=== PATIENT | female | born 1945 | race Caucasian/White ===

== ENCOUNTER 2016-07-28 16:09 | Inpatient (IN) | payer MEDICARE, OTHER ==
[2016-07-28] MEDS ORDERED: Potassium Chloride 20 MEQ Tab.ER PO ONE (16:22)
--- NOTE | 2016-07-28 16:23 | EDM.PDOC ---
ED HPI GENERAL MEDICAL PROBLEM - General Stated Complaint: LOW POTASSIUM Time Seen by Provider: 07/28/16 16:09 Source of Information: Reports: Patient, Family History Limitations: Reports: Physical Impairment - History of Present Illness INITIAL COMMENTS - FREE TEXT/NARRATIVE: 70 y.o.w.f. with a h/o frequent falls, came to the ED after she was seen at the clinic for her yearly physical, when she was found her potassium was 2.3. Pt is a poor historian, her HPT was given by her daughter. Pt complains of weakness and being always tired. Pt take thyroid meds. Pt denies any other acute medical issue. Onset: Gradual Onset Date: 07/25/16 Onset Time: 17:00 Duration: Day(s): Location: Reports: Generalized Severity: Mild Improves with: Reports: None Worsens with: Reports: None Associated Symptoms: Reports: No Other Symptoms - Related Data Allergies Allergy/AdvReac Type Severity Reaction Status Date / Time amoxicillin Allergy Rash Verified 07/28/16 16:35 latex Allergy Cough Verified 07/28/16 16:36 Home Meds: Home Meds Aspirin 81 mg PO DAILY 07/28/16 [History] Atenolol/Chlorthalidone [Atenolol-Chlorthalidone 100-25] 1 tab PO DAILY [History] Calcium Carb/Vit D3/Minerals [Calcium 600+D Plus Minerals] 1,200 mg PO DAILY [History] Cholecalciferol (Vitamin D3) [Vitamin D3] 1,000 unit PO DAILY 07/28/16 [History] DULoxetine [Cymbalta] 20 mg PO DAILY 07/28/16 [History] Dextran 70/Hypromellose/PF [Artificial Tears Drops] 1 each OP BID 07/28/16 [ History] Docusate Calcium 240 mg PO DAILY 07/28/16 [History] Furosemide [Lasix] 20 mg PO DAILY 07/28/16 [History] Multivitamin [Multi-Vitamin Daily] 1 tab PO DAILY 07/28/16 [History] [place]-3S/DHA/Epa/Fish Oil [[place]-3 Fish Oil 1,200 mg Sfgl] 1,200 mg PO DAILY [History] Tolterodine Tartrate [Detrol LA] 4 mg PO DAILY 07/28/16 [History] cloNIDine [Catapres] 0.1 mg PO DAILY 07/28/16 [History] ED ROS GENERAL - Review of Systems Review Of Systems: Unable To Obtain ED EXAM, GENERAL - Physical Exam Exam: See Below Exam Limited By: Physical Impairment General Appearance: Alert, Mild Distress, Obese (morbid) Eye Exam: Bilateral Eye: Normal Inspection Ears: Normal External Exam Ear Exam: Bilateral Ear: Auricle Normal Nose: Normal Inspection, Normal Mucosa Throat/Mouth: Normal Inspection, Normal Lips Head: Atraumatic, Normocephalic Neck: Tender Midline Respiratory/Chest: No Respiratory Distress, Lungs Clear (poor insp effort) Cardiovascular: Normal Peripheral Pulses, Regular Rate, Rhythm Peripheral Pulses: 2+: Femoral (L), Femoral (R) GI/Abdominal: Normal Bowel Sounds, Soft, Non-Tender (Female) Exam: Deferred Rectal (Female) Exam: Deferred Back Exam: Normal Inspection, Full Range of Motion Extremities: Normal Inspection, Normal Range of Motion Neurological: Alert, Oriented, CN II-XII Intact Psychiatric: Depressed Mood Skin Exam: Warm, Intact, Normal Color Lymphatic: No Adenopathy EKG INTERPRETATION EKG Date: 07/28/16 Time: 18:10 Rhythm: NSR Rate (beats/min): 61 [place]: normal P-wave: present QRS: normal ST-T: normal QT: normal Comparison: NA - no prior EKG Course - Vital Signs Text/Narrative:: 70 y.o.w.f. with a h/o frequent falls, came to the ED after she was seen at the clinic for her yearly physical, when she was found her potassium was 2.3. Pt is a poor historian, her HPT was given by her daughter. Pt complains of weakness and being always tired. Pt take thyroid meds. Has neck painPt denies any other acute medical issue. PE: Morbid obese 70 y.o.w.f in NAD, Neck pain to palpation at midline labs: Potassium 2.3 Mg pending UA pos fro uti Impression: Hypokalemia, Morbid obese, frequent falls, weakness, neck pain, UTI, Tx: KCL 40meq po, 20 meq i v over 2 hours. Reexam: Improved Plan: Admit to med/surge tele for obs Consultation: Dr. Padilla: Admit to Dr. Parks Last Recorded V/S: Last Vital Signs Temp 36.4 C 07/28/16 16:10 Pulse 64 07/28/16 16:10 Resp 18 07/28/16 16:10 BP 133/56 L 07/28/16 16:10 Pulse Ox 98 07/28/16 16:10 - Orders/Labs/Meds Orders: Active Orders 24 hr Category Date Time Status EKG Documentation Completion [RC] ASDIRECTED Care 07/28/16 16:31 Active CXR [Chest 2V] [CR] Stat Exams 07/28/16 17:06 Taken Cervical Spine 1V [CR] Stat Exams 07/28/16 16:44 Stop Req Cervical Spine wo Cont [CT] Stat Exams 07/28/16 16:47 Taken EKG 12 Lead [EK] Routine Ther 07/28/16 16:30 Ordered Medication Orders Enoxaparin Sodium (Lovenox) 40 mg SUBCUT Q12HR SHEMAR Sodium Chloride (Normal Saline) 250 mls @ 100 mls/hr IV ASDIRECTED SHEMAR Last Admin: 07/28/16 18:38 Dose: 100 mls/hr Labs: Laboratory Tests 07/28/16 Range/Units 17:09 Urine Color Yellow (YELLOW) Urine Appearance Clear (CLEAR) Urine pH 7.0 H (5.0-6.5) Ur Specific [place] 1.010 (1.010-1.025) Urine Protein Negative (NEGATIVE) mg/dL Urine Glucose (UA) Normal (NEGATIVE) mg/dL Urine Ketones Negative (NEGATIVE) mg/dL Urine Occult Blood Moderate H (NEGATIVE) Urine Nitrite Negative (NEGATIVE) Urine Bilirubin Negative (NEGATIVE) Urine Urobilinogen Normal (NEGATIVE) mg/dL Ur Leukocyte Esterase Moderate H (NEGATIVE) Urine RBC 5-10 (0) Urine WBC 10-20 H (0) Ur Squamous Epith Cells Few H (NS,R,O) Urine Bacteria Few H (NS) Meds: Medications Generic Name Dose Route Start Last Admin Trade Name Freq PRN Reason Stop Dose Admin Enoxaparin Sodium 40 mg 07/28/16 17:30 Lovenox SUBCUT Q12HR SHEMAR Sodium Chloride 250 mls @ 100 mls/hr 07/28/16 18:30 07/28/16 18:38 Normal Saline IV 100 mls/hr ASDIRECTED SHEMAR Administration Discontinued Medications Generic Name Dose Route Start Last Admin Trade Name Freq PRN Reason Stop Dose Admin Ciprofloxacin 500 mg 07/28/16 17:47 07/28/16 18:39 Ciprofloxacin Hcl PO 07/28/16 17:48 500 mg ONETIME ONE Administration Potassium Chloride 20 meq/ 100 mls @ 50 mls/hr 07/28/16 16:28 07/28/16 18:16 Premix IV 07/28/16 18:27 50 mls/hr ONETIME ONE Administration Potassium Chloride 40 meq 07/28/16 16:22 07/28/16 16:32 Klor-Con M20 PO 07/28/16 16:23 40 meq ONETIME ONE Administration Departure - Departure Time of Disposition: 18:35 Disposition: Refer to Observation Condition: fair Clinical Impression: Hypokalemia - My Orders Last 24 Hours: My Active Orders 07/28/16 16:30 EKG 12 Lead [EK] Routine 07/28/16 16:31 EKG Documentation Completion [RC] ASDIRECTED 07/28/16 16:44 Cervical Spine 1V [CR] Stat 07/28/16 16:47 Cervical Spine wo Cont [CT] Stat 07/28/16 17:06 CXR [Chest 2V] [CR] Stat - Assessment/Plan Last 24 Hours: My Active Orders 07/28/16 16:30 EKG 12 Lead [EK] Routine 07/28/16 16:31 EKG Documentation Completion [RC] ASDIRECTED 07/28/16 16:44 Cervical Spine 1V [CR] Stat 07/28/16 16:47 Cervical Spine wo Cont [CT] Stat 07/28/16 17:06 CXR [Chest 2V] [CR] Stat
[2016-07-28] MEDS ORDERED: Potassium Chloride 20 MEQ in Premix Bag 1 BAG IV ONE (16:28)
[2016-07-28] MEDS ORDERED: Ciprofloxacin 500 MG Tab PO ONE (17:47)
[2016-07-28] MEDS: Sodium Chloride 0.9% 250 ML IV SCH (18:38)
[2016-07-28] MEDS ORDERED: Enoxaparin 40 MG/0.4 ML Syringe SUBCUT SCH (20:00)
[2016-07-28] MEDS ORDERED: Magnesium Hydroxide 400 MG/5 ML Susp 30 ML Cup PO PRN (21:59)
[2016-07-29] MEDS ORDERED: Acetaminophen 325 MG Tab PO PRN (01:54)
[2016-07-29] MEDS ORDERED: SPIRONOLACTONE 25 MG PO SCH (10:00)
[2016-07-29] MEDS ORDERED: CHLORTHALIDONE PO SCH (10:00)
[2016-07-29] MEDS ORDERED: ATENOLOL PO SCH (10:00)
[2016-07-29] MEDS: NS + KCl 20mEq/L 1,000 ML IV SCH ×2 (10:05→23:30)
[2016-07-29] MEDS: CITALOPRAM 40 MG PO SCH (10:11)
[2016-07-29] MEDS: Levothyroxine 88 MCG Tab PO SCH (10:12)
[2016-07-29] MEDS: Ciprofloxacin 250 MG Tab PO SCH ×2 (10:12→20:13)
[2016-07-29] MEDS: DULoxetine 30 MG Cap PO SCH ×2 (10:12→20:10)
[2016-07-29] MEDS: Acetaminophen 500 MG Tab PO PRN ×2 (10:28→16:55)
[2016-07-29] MEDS: Docusate Sodium 100 MG Cap PO PRN (10:30)
[2016-07-29] MEDS: Potassium Chloride 20 MEQ in Premix Bag 1 BAG IV SCH ×2 (10:45→20:20)
--- NOTE | 2016-07-29 18:13 | HP ---
ADMISSION DATE: 07/28/2016 REASON FOR VISIT: Recent fall, weakness, headache, profound hypokalemia. HISTORY OF PRESENT ILLNESS: Bernie Thomas was seen in the morning of 07/30/2016. Had been admitted on 07/28 through the ER. Presented with a recent fall neck injury, profound hypokalemia, generalized weakness. She was found to have a potassium of 2.3 on the day of admission. Admission to hospital is indicated. MEDICATIONS: Present daily medications include: 1. ASA aspirin 81 mg 1 p.o. daily. 2. Betamethasone b.i.d. rash. 3. Calcium plus vitamin D2 daily. 4. Vitamin D3 1000 units one daily. 5. Furosemide 20 mg 1 p.o. daily. 6. Multivitamin one daily. 7. Nutrition omega-3 fish oil one daily. 8. Nutrition atenolol HCTZ 10 to 100-25 one p.o. daily blood pressure. 9. Citalopram 40 mg 1 p.o. daily mood stabilizer. 10.Cymbalta 30 mg 1 p.o. b.i.d. pain control. 11.Docusate sodium 240 one daily stools. 12.Levothyroxine 88 mcg one p.o. daily hypothyroidism. 13.Spironolactone 25 mg 1 p.o. daily edema. 14.Clonidine patch 0.1 mg weekly. 15.Trazodone 100 mg 1 p.o. at bedtime. ALLERGIES: Allergic to amoxicillin with rash, latex with cough. PAST MEDICAL HISTORY: Significant for bilateral total knee arthroplasty, hysterectomy with bilateral salpingo-oophorectomy done through the abdominal wall. She has an ongoing leg ulcer intervention per Dr. Edwards. No other operative procedures, hospitalizations, unusual childhood diseases, major injuries, or fractures. GYNECOLOGICAL HISTORY: Postmenopausal, 1, para 1 female. SOCIAL HISTORY: . . 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 One daughter whom she lives. Nonsmoker. No alcohol consumption. No illicit drug use. REVIEW OF SYSTEMS: History difficult. Feeling weak and feeling tired, intermittent neck pain. Denies respiratory difficulty. No bowel or bladder impairment. Some constipation, mild stress incontinence, left lower leg ulcer. PHYSICAL EXAMINATION: VITAL SIGNS: 36 degrees, pulse 70, blood pressure 129/50, mean blood pressure 76, respirations 18, 97% room air. GENERAL: Elderly, cooperative and conversant, significantly obese. HEENT: Funduscopic benign. Conjunctivae clear. Bright tympanic membranes. Decreased hearing. Clear nasal discharge. Mouth and oropharynx clear. Poor dentition. NECK: Benign. Thyroid small. CHEST: Clear in all lung villatoro. No adventitious sounds. HEART: Regular without ectopy or murmur. ABDOMEN: Soft, benign. No hepatosplenomegaly. Well-healed lower abdominal surgical scar. : Deferred. RECTAL: Deferred. EXTREMITIES: Wrapped ulcer, left lower extremity below the knee. Peripheral pulses are diminished. SKIN: Eczematoid changes. LABORATORY STUDIES: This morning, 07/29, sodium 136, potassium 2.5, chloride 97. GFR 55. Urine suggesting UTI, on Cipro therapy. ASSESSMENT: 1. Weakness due to hypokalemia. 2. Undiagnosed urinary tract infection. 3. Chronic pain syndrome. 4. Left lower extremity, leg ulcer. 5. Status post hysterectomy with bilateral oophorectomy. 6. Status post total knee arthroplasties. 7. Left leg ulcer. PLAN: Medications, care and treatment appropriate. Replacement of potassium, fluids, and hydration. Proceed accordingly. Urinary tract infection will be reviewed. CT cervical spine showed no bony injury. /[id number] NIKKI/TONNY
[2016-07-29] MEDS: traZODone 100 MG Tab PO SCH (20:10)
[2016-07-29] MEDS: Enoxaparin 40 MG/0.4 ML Syringe SUBCUT SCH (20:10)
[2016-07-30] MEDS: Acetaminophen 500 MG Tab PO PRN ×3 (01:19→16:46)
[2016-07-30] MEDS: Levothyroxine 88 MCG Tab PO SCH (06:14)
[2016-07-30] MEDS: CITALOPRAM 40 MG PO SCH (09:36)
[2016-07-30] MEDS: DULoxetine 30 MG Cap PO SCH ×2 (09:36→20:36)
[2016-07-30] MEDS: Ciprofloxacin 250 MG Tab PO SCH ×2 (09:36→20:35)
[2016-07-30] MEDS: Potassium Chloride 20 MEQ in Premix Bag 1 BAG IV SCH ×5 (10:03→21:22)
[2016-07-30] MEDS: Sodium Chloride 0.9% 250 ML IV SCH ×2 (15:00→23:58)
[2016-07-30] MEDS: traZODone 100 MG Tab PO SCH (20:37)
[2016-07-30] MEDS: Enoxaparin 40 MG/0.4 ML Syringe SUBCUT SCH (20:37)
[2016-07-31] MEDS ORDERED: Zolpidem 5 MG Tab PO PRN (00:36)
[2016-07-31] MEDS: Levothyroxine 88 MCG Tab PO SCH (06:59)
--- NOTE | 2016-07-31 08:49 | PN ---
DATE SEEN: 07/30/2016 SUBJECTIVE: Stephanie Thomas is a 70-year-old female, admitted with profound weakness, jitteriness, increasing lethargy, and quite significant hypokalemia, 2.5 on admission, 2.9, and 2.7 today. In today for review. She has had intravenous potassium. Spoke to opportunities and implications. Home situation may be under some conflict. Spoke to opportunities in care, and home living situation along with support services. [employer] Counselor will be consulted. MEDICATIONS: Present medications include oral ciprofloxacin for UTI, Lovenox for DVT prevention, and intravenous potassium. OBJECTIVE: VITAL SIGNS: Temperature 36.6, pulse 67, blood pressure 105/70, 18 respirations, O2 saturations 98%. NECK: Benign, thyroid small. CHEST: Clear in all lung villatoro. No adventitious sounds. HEART: Regular without ectopy or murmur. ABDOMEN: Obese. EXTREMITIES: Edema lower extremity. Ulcerative lesion covered left lower extremity. ASSESSMENT: Hypokalemia with weakness, marked obesity, progress decline in physical well being. PLAN: PT, OT, [employer] Counselor involved complementary care and well being. Proceed accordingly. /[id number] NIKKI/TONNY
[2016-07-31] MEDS: Citalopram 20 MG Tab PO SCH (09:08)
[2016-07-31] MEDS: Ciprofloxacin 250 MG Tab PO SCH ×2 (09:08→20:33)
[2016-07-31] MEDS: DULoxetine 30 MG Cap PO SCH ×2 (09:09→20:34)
[2016-07-31] MEDS: Potassium Chloride 20 MEQ Tab.ER PO SCH ×3 (09:09→20:35)
--- NOTE | 2016-07-31 11:12 | CR ---
INDICATION: Weakness. CHEST: PA and lateral views of the chest 07/28/2016 were compared with 2016 and 10/03/2005, revealing evidence of exogenous obesity as previously. The heart may be slightly increased in size, but remains within normal limits in size. The aorta is tortuous. Findings suggest ASHD of mild degree. There is suggestion of a mass behind the heart which could be on the basis of a fixed hiatal hernia of moderate size. A definite active infiltrate or effusion was not identified. Slight flattening of diaphragm leaves and prominent AP diameter raise question of a mild degree of COPD - correlate clinically. Bridging hyperostotic changes are noted in the mid to lower thoracic spine with evidence of disk disease at several mid thoracic levels. IMPRESSION: 1. No acute process. 2. Probable mild ASHD. 3. Probable mild COPD. 4. 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 5. Suggestion of a mass behind the heart which could be on the basis of a moderate sized fixed hiatal hernia. This could be confirmed by esophagram or CT of the abdomen/chest as necessary clinically. MTDD
[2016-07-31] MEDS: Docusate Sodium 100 MG Cap PO PRN (12:01)
[2016-07-31] MEDS: Acetaminophen 500 MG Tab PO PRN (12:01)
--- NOTE | 2016-07-31 13:53 | PN ---
DATE SEEN: 07/31/2016 SUBJECTIVE: Stepahnie Thomas is a 70-year-old female, admitted with complicated weakness, profound hypokalemia, and weakness. Clinical response has been a bit subdued. Potassium went from 2.5 to 2.9 to 2.7 to 3.0 this morning. This in spite of multiple doses of IV potassium. Care situation is in question. She lives with her daughter and daughter's too semi dependent children. Living situation in under consideration. PT OT involved. Laboratory studies, otherwise have been unremarkable. EXAM: VITAL SIGNS: 36.4; pulse of 62; 102/56 is the blood pressure, mean blood pressure 71; respirations 18; 92% on room air. GENERAL: Sitting in the upright position. Speech was fluent. NECK: Benign. Thyroid small. CHEST: Clear in all lung villatoro. Decreased breath sounds both bases. HEART: Sounds were distant. ABDOMEN: Markedly obese dressing to the left lower leg under supervision by Dr. Edwards. Moderate edema. ASSESSMENT: 1. Hypokalemia with weakness. 2. Living situation in question, independence in question. PLAN: Upcoming review with Automotive Engineering Technician, PT OT, and Intervention. We will switch from IV to oral potassium, discharge plan accordingly. /[id number] NIKKI/TONNY
[2016-07-31] MEDS ORDERED: Carboxymethylcellulose Sodium 1% Ophth Gel 0.4 ML UD Box of 30 EYEBOTH SCH (18:00)
[2016-07-31] MEDS: Betamethasone Dipropionate 0.05% Crm 45 GM Tube TOP SCH (20:34)
[2016-07-31] MEDS: traZODone 100 MG Tab PO SCH (20:35)
[2016-07-31] MEDS: Enoxaparin 40 MG/0.4 ML Syringe SUBCUT SCH (20:35)
[2016-07-31] MEDS: Carboxymethylcellulose Sodium 0.5% Ophth Soln 15 ML Bottle ONE ×2 (20:36→22:43)
[2016-07-31] MEDS ORDERED: Betamethasone Dipropionate 0.05% Crm 45 GM Tube TOP SCH (21:00)
[2016-08-01] MEDS: Levothyroxine 88 MCG Tab PO SCH (05:47)
--- NOTE | 2016-08-01 08:36 | PN ---
DATE SEEN: 07/31/2016 SUBJECTIVE: This patient is being seen for a dressing change. She was scheduled to see me today. She is being followed for venous stasis disease in the medial aspect of her left ankle. She had developed a small punctate ulceration and was scheduled to see me today in clinic; however, due to her admission for hypokalemia I was asked to see the patient here in the hospital. OBJECTIVE: The Unna boot which had been applied last week was removed. The lesion itself demonstrates a small breakdown of the skin approximately 1 cm in diameter consisting of several punctate lesions. She also has some venous stasis changes to her lower extremity. Aquacel Ag was reapplied as was the Unna Boot, Kerlix, and Casimiro wrap. I have instructed the patient to follow up next week after discharge for dressing change. /[id number] /ANGELICAL
[2016-08-01] MEDS: Acetaminophen 500 MG Tab PO PRN ×2 (08:39→22:51)
[2016-08-01] MEDS: Citalopram 20 MG Tab PO SCH (08:40)
[2016-08-01] MEDS: Potassium Chloride 20 MEQ Tab.ER PO SCH ×3 (08:40→20:57)
[2016-08-01] MEDS: Ciprofloxacin 250 MG Tab PO SCH ×2 (08:40→20:56)
[2016-08-01] MEDS: Carboxymethylcellulose Sodium 0.5% Ophth Soln 15 ML Bottle EYEBOTH SCH ×2 (08:44→20:57)
[2016-08-01] MEDS: Betamethasone Dipropionate 0.05% Crm 45 GM Tube TOP SCH ×2 (08:44→20:56)
[2016-08-01] MEDS: DULoxetine 30 MG Cap PO SCH ×2 (08:44→20:56)
[2016-08-01] MEDS ORDERED: cloNIDine 0.1 MG/Day Transdermal Patch TRDERM SCH (09:00)
--- NOTE | 2016-08-01 11:01 | PN ---
DATE SEEN: 08/01/2016 SUBJECTIVE: Stephanie Thomas is a 70-year-old female, admitted with profound weakness and hypokalemia. Response has been satisfactory. Last two potassium is 3.6 and 3.4. Ambulatory skills are limited, getting up from the bed, getting up from the chair quite problematic. Ambulatory skills are limited. Focusing on improvement is under review. Swing bed status upcoming and planned. OBJECTIVE: VITAL SIGNS: 36.1, 121/57, 70 is the mean blood pressure, 20 is the respiration, 97% on room air. GENERAL: Appears comfortable. Speech was fluent. NECK: Benign. Thyroid small. CHEST: Clear in all lung villatoro. HEART: Regular. No ectopy or murmur. ABDOMEN: Benign. Significantly obese. EXTREMITIES: Moderate edema lower extremities, ulcer left ankle, under review and observation. ASSESSMENT: Complicated fatigue, profound weakness, hypokalemia. PLAN: Appears to be well, we will continue oral. Potassium, complementary care, and well being, medications as appropriate. Swing bed planned, upcoming tomorrow. /[id number] /TONNY
[2016-08-01] MEDS: traZODone 100 MG Tab PO SCH (20:57)
[2016-08-01] MEDS: Enoxaparin 40 MG/0.4 ML Syringe SUBCUT SCH (20:57)
[2016-08-02] MEDS: Levothyroxine 88 MCG Tab PO SCH (06:21)
[2016-08-02] MEDS: DULoxetine 30 MG Cap PO SCH (09:21)
[2016-08-02] MEDS: Potassium Chloride 20 MEQ Tab.ER PO SCH (09:21)
[2016-08-02] MEDS: Citalopram 20 MG Tab PO SCH (09:21)
[2016-08-02] MEDS: Betamethasone Dipropionate 0.05% Crm 45 GM Tube TOP SCH (09:22)
[2016-08-02] MEDS: Ciprofloxacin 250 MG Tab PO SCH (09:22)
[2016-08-02 09:40] VITALS: BP 121/78
--- NOTE | 2016-08-03 02:24 | DISCH ---
DISCHARGE DATE: 08/02/2016 HOSPITAL COURSE: Stephanie Thomas is a 70-year-old female admitted with complicated fatigue, profound hypokalemia, and profound lethargy. Metabolically, things improved. Potassium levels returned to normal. There was an increasing issue of self-care issues, ability to sit, transfer, and move. PT, OT were actively involved. At the time of discharge, need for ongoing care, i.e., swing bed timely and appropriate felt to be indicated. DISCHARGE MEDICATIONS: Please see med recon list. SURGICAL PROCEDURES: None. CONSULTATIONS: None. /[id number] NIKKI/TONNY
== END 2016-08-02 10:14 | disposition swing bed (61) | DRG 641 ==
LOC: FB.ED 16:09 → UNDOADMOB 17:25 → FB.MS 17:25 → OBSVTOIN 07-30 09:55 → FB.MS 07-30 09:55
PROVIDERS: ADMIT Family Medicine; ATTEND Family Medicine
DX: E87.6 Hypokalemia (principal); L97.829 Non-pressure chronic ulcer of other part of left lower leg with unspecified severity; N39.0 Urinary tract infection, site not specified; Z68.42 Body mass index [BMI] 45.0-49.9, adult; E66.01 Morbid (severe) obesity due to excess calories; R53.1 Weakness; Z91.81 History of falling; G89.4 Chronic pain syndrome; S19.9XXA Unspecified injury of neck, initial encounter; R53.83 Other fatigue; W19.XXXA Unspecified fall, initial encounter; Y92.009 Unspecified place in unspecified non-institutional (private) residence as the place of occurrence of the external cause; R82.79 Other abnormal findings on microbiological examination of urine; I87.8 Other specified disorders of veins; Z96.653 Presence of artificial knee joint, bilateral; Z79.82 Long term (current) use of aspirin; Z88.1 Allergy status to other antibiotic agents; Z91.040 Latex allergy status
CPT/HCPCS: 36415 ×3; 71020; 72125; 80048; 81001; 83735; 84132 ×2; 84443; 85610; 87086; 87088; 93005; 99285; A9270 ×20; J1650 ×2; J3480 ×5; J7050; 36410; 87186; 97110-GO; 97116-GP; 97161-GP; 97165-GO; 97530-GO-KX; 97530-GP; 99225

== ENCOUNTER 2016-08-02 10:16 | Inpatient (IN) | payer MEDICARE, OTHER ==
[2016-08-02] MEDS ORDERED: Magnesium Hydroxide 400 MG/5 ML Susp 30 ML Cup PO PRN (10:25)
[2016-08-02] MEDS: Potassium Chloride 20 MEQ Tab.ER PO SCH ×2 (14:00→20:50)
[2016-08-02] MEDS: Ciprofloxacin 250 MG Tab PO SCH (20:49)
[2016-08-02] MEDS: Betamethasone Dipropionate 0.05% Crm 45 GM Tube TOP SCH (20:50)
[2016-08-02] MEDS: DULoxetine 30 MG Cap PO SCH (20:50)
[2016-08-02] MEDS: traZODone 100 MG Tab PO SCH (20:51)
[2016-08-02] MEDS: Enoxaparin 40 MG/0.4 ML Syringe SUBCUT SCH (20:51)
[2016-08-02] MEDS: Carboxymethylcellulose Sodium 0.5% Ophth Soln 15 ML Bottle EYEBOTH SCH (20:51)
[2016-08-02] MEDS: Acetaminophen 500 MG Tab PO PRN (21:48)
[2016-08-02] MEDS: Zolpidem 5 MG Tab PO PRN (22:43)
[2016-08-03] MEDS: Levothyroxine 88 MCG Tab PO SCH (05:37)
[2016-08-03] MEDS ORDERED: ATENOLOL PO SCH (09:00)
[2016-08-03] MEDS ORDERED: CHLORTHALIDONE PO SCH (09:00)
[2016-08-03] MEDS: Aspirin 81 MG Tab.Chew PO SCH (09:11)
[2016-08-03] MEDS: Chlorthalidone 25 MG Tab PO SCH (09:12)
[2016-08-03] MEDS: DULoxetine 30 MG Cap PO SCH ×2 (09:12→21:03)
[2016-08-03] MEDS: Citalopram 20 MG Tab PO SCH (09:12)
[2016-08-03] MEDS: Ciprofloxacin 250 MG Tab PO SCH ×2 (09:12→21:03)
[2016-08-03] MEDS: Potassium Chloride 20 MEQ Tab.ER PO SCH ×3 (09:13→21:06)
[2016-08-03] MEDS: Betamethasone Dipropionate 0.05% Crm 45 GM Tube TOP SCH ×2 (09:13→21:03)
--- NOTE | 2016-08-03 10:45 | PN ---
DATE SEEN: 08/03/2016 Stephanie Thomas is a 70-year-old female, admitted with weakness, hyponatremia, and deconditioning. Hospital course was satisfactory with improvement of her hypokalemia. It is all under supervision. Now in swing bed. Ambulatory skills particularly going from sitting out of the chair and from bed to ambulance have been a primary issue, PT and OT actively involved. We will recheck a potassium today, complementary care and well being. She is on adequate potassium chloride 20 mEq t.i.d., she has not been symptomatic, electrocardiographic issues have been stable. Comfortable in that regard. /[id number] NIKKI/TONNY
[2016-08-03] MEDS: Enoxaparin 40 MG/0.4 ML Syringe SUBCUT SCH (21:06)
[2016-08-03] MEDS: Zolpidem 5 MG Tab PO PRN (21:07)
[2016-08-03] MEDS: Acetaminophen 500 MG Tab PO PRN (21:07)
[2016-08-03] MEDS: traZODone 100 MG Tab PO SCH (21:07)
[2016-08-03] MEDS: Carboxymethylcellulose Sodium 0.5% Ophth Soln 15 ML Bottle EYEBOTH SCH (21:08)
[2016-08-04] MEDS: Levothyroxine 88 MCG Tab PO SCH (05:53)
[2016-08-04] MEDS: Citalopram 20 MG Tab PO SCH (08:17)
[2016-08-04] MEDS: DULoxetine 30 MG Cap PO SCH ×2 (08:17→20:18)
[2016-08-04] MEDS: Betamethasone Dipropionate 0.05% Crm 45 GM Tube TOP SCH ×2 (08:18→20:22)
[2016-08-04] MEDS: Chlorthalidone 25 MG Tab PO SCH (08:18)
[2016-08-04] MEDS: Aspirin 81 MG Tab.Chew PO SCH (08:18)
[2016-08-04] MEDS: Potassium Chloride 20 MEQ Tab.ER PO SCH ×3 (08:18→20:19)
[2016-08-04] MEDS: Ciprofloxacin 250 MG Tab PO SCH ×2 (08:18→20:21)
[2016-08-04] MEDS: Acetaminophen 500 MG Tab PO PRN (20:18)
[2016-08-04] MEDS: traZODone 100 MG Tab PO SCH (20:19)
[2016-08-04] MEDS: Enoxaparin 40 MG/0.4 ML Syringe SUBCUT SCH (20:19)
[2016-08-05] MEDS: Zolpidem 5 MG Tab PO PRN ×2 (02:00→20:10)
[2016-08-05] MEDS: Levothyroxine 88 MCG Tab PO SCH (05:29)
[2016-08-05] MEDS: Aspirin 81 MG Tab.Chew PO SCH (08:19)
[2016-08-05] MEDS: Citalopram 20 MG Tab PO SCH (08:20)
[2016-08-05] MEDS: Chlorthalidone 25 MG Tab PO SCH (08:25)
[2016-08-05] MEDS: DULoxetine 30 MG Cap PO SCH ×2 (08:26→20:10)
[2016-08-05] MEDS: Betamethasone Dipropionate 0.05% Crm 45 GM Tube TOP SCH ×2 (08:28→20:11)
[2016-08-05] MEDS: Potassium Chloride 20 MEQ Tab.ER PO SCH ×3 (08:32→20:09)
[2016-08-05] MEDS: Acetaminophen 500 MG Tab PO PRN ×3 (11:02→23:55)
[2016-08-05] MEDS: Carboxymethylcellulose Sodium 0.5% Ophth Soln 15 ML Bottle EYEBOTH SCH (13:25)
[2016-08-05] MEDS: Enoxaparin 40 MG/0.4 ML Syringe SUBCUT SCH (20:09)
[2016-08-05] MEDS: traZODone 100 MG Tab PO SCH (20:09)
[2016-08-06] MEDS: Levothyroxine 88 MCG Tab PO SCH (05:15)
[2016-08-06] MEDS: Aspirin 81 MG Tab.Chew PO SCH (08:34)
[2016-08-06] MEDS: Citalopram 20 MG Tab PO SCH (08:34)
[2016-08-06] MEDS: Chlorthalidone 25 MG Tab PO SCH (08:35)
[2016-08-06] MEDS: DULoxetine 30 MG Cap PO SCH ×2 (08:36→20:10)
[2016-08-06] MEDS: Betamethasone Dipropionate 0.05% Crm 45 GM Tube TOP SCH ×2 (08:36→20:10)
[2016-08-06] MEDS: Potassium Chloride 20 MEQ Tab.ER PO SCH ×3 (08:37→20:11)
--- NOTE | 2016-08-06 09:32 | PCM.PN ---
- General Info Date of Service: 08/06/16 Admission Dx/Problem (Free Text): Patient states she's doing well. She states she still feels weak but is getting stronger. She denies chest pain, shortness of breath, or leg swelling. - Patient Data Vitals - most recent: Last Vital Signs Temp 97.7 F 08/06/16 08:00 Pulse 68 08/06/16 08:38 Resp 16 08/06/16 08:00 BP 120/71 08/06/16 08:38 Pulse Ox 96 08/06/16 08:00 Weight - most recent: 308 lb 11.2 oz Med Orders - Current: Current Medications Acetaminophen (Tylenol Extra Strength) 1,000 mg PO Q6H PRN PRN Reason: Pain Last Admin: 08/05/16 23:55 Dose: 1,000 mg Artificial Tears (Refresh Tears 0.5%) 0 ml EYEBOTH ASDIRECTED [facility] Last Admin: 08/05/16 13:25 Dose: 2 drop Aspirin (Aspirin) 81 mg PO DAILY [facility] Last Admin: 08/06/16 08:34 Dose: 81 mg Atenolol (Tenormin) 100 mg PO DAILY [facility] Last Admin: 08/06/16 08:38 Dose: 100 mg Betamethasone Dipropionate (Diprosone 0.05% Crm) 0 gm TOP BID [facility] Last Admin: 08/06/16 08:36 Dose: 1 applic Chlorthalidone (Chlorthalidone) 25 mg PO DAILY [facility] Last Admin: 08/06/16 08:35 Dose: 25 mg Citalopram Hydrobromide (Celexa) 20 mg PO DAILY [facility] Last Admin: 08/06/16 08:34 Dose: 20 mg Clonidine HCl (Catapres-Tts 1) 0.1 mg TOP Tu@0900 [facility] Docusate Sodium (Colace) 100 mg PO DAILY PRN PRN Reason: CONSTIPATION Duloxetine HCl (Cymbalta) 30 mg PO BID [facility] Last Admin: 08/06/16 08:36 Dose: 30 mg Enoxaparin Sodium (Lovenox) 40 mg SUBCUT Q24H [facility] Last Admin: 08/05/16 20:09 Dose: 40 mg Levothyroxine Sodium (Synthroid) 88 mcg PO DAILY@0600 [facility] Last Admin: 08/06/16 05:15 Dose: 88 mcg Magnesium Hydroxide (Milk Of Magnesia) 30 ml PO DAILY PRN PRN Reason: Constipation Potassium Chloride (Klor-Con M20) 20 meq PO TID [facility] Last Admin: 08/06/16 08:37 Dose: 20 meq Trazodone HCl (Trazodone) 100 mg PO BEDTIME [facility] Last Admin: 08/05/16 20:09 Dose: 100 mg Zolpidem Tartrate (Ambien) 5 mg PO BEDTIME PRN PRN Reason: Insomnia Last Admin: 08/05/16 20:10 Dose: 5 mg Discontinued Medications Atenolol/Chlorthalidone (Tenoretic 100) 1 tab PO DAILY [facility] Ciprofloxacin (Ciprofloxacin Hcl) 250 mg PO BID [facility] Stop: 08/04/16 21:00 Last Admin: 08/04/16 20:21 Dose: 250 mg - Exam General: alert, oriented, cooperative Lungs: Clear to auscultation, Normal respiratory effort Cardiovascular: Regular Rate, Regular Rhythm, No Murmurs Extremities: no edema - Problem List & Annotations (1) Weakness SNOMED Code(s): 60767085 Code(s): R53.1 - WEAKNESS Status: Acute Current Visit: Yes (2) Hypokalemia SNOMED Code(s): 21461233 Code(s): E87.6 - HYPOKALEMIA Status: Acute Current Visit: No - Problem List Review Problem List Initiated/Reviewed/Updated: Yes - Plan Plan:: 1. Continue current care.
[2016-08-06] MEDS: Acetaminophen 500 MG Tab PO PRN (09:35)
[2016-08-06] MEDS: Enoxaparin 40 MG/0.4 ML Syringe SUBCUT SCH (20:11)
[2016-08-06] MEDS: traZODone 100 MG Tab PO SCH (20:12)
[2016-08-07] MEDS: Acetaminophen 500 MG Tab PO PRN ×2 (04:49→20:44)
[2016-08-07] MEDS: Levothyroxine 88 MCG Tab PO SCH (05:21)
[2016-08-07] MEDS: Aspirin 81 MG Tab.Chew PO SCH (08:49)
[2016-08-07] MEDS: Citalopram 20 MG Tab PO SCH (08:49)
[2016-08-07] MEDS: DULoxetine 30 MG Cap PO SCH ×2 (08:50→20:39)
[2016-08-07] MEDS: Chlorthalidone 25 MG Tab PO SCH (08:50)
[2016-08-07] MEDS: Betamethasone Dipropionate 0.05% Crm 45 GM Tube TOP SCH ×2 (08:50→20:39)
[2016-08-07] MEDS: Potassium Chloride 20 MEQ Tab.ER PO SCH ×3 (08:51→20:40)
[2016-08-07] MEDS: Enoxaparin 40 MG/0.4 ML Syringe SUBCUT SCH (20:40)
[2016-08-07] MEDS: traZODone 100 MG Tab PO SCH (20:41)
[2016-08-08] MEDS: Levothyroxine 88 MCG Tab PO SCH (05:25)
[2016-08-08] MEDS ORDERED: cloNIDine 0.1 MG/Day Transdermal Patch TOP SCH (09:00)
[2016-08-08] MEDS: Chlorthalidone 25 MG Tab PO SCH (09:07)
[2016-08-08] MEDS: DULoxetine 30 MG Cap PO SCH ×2 (09:07→21:12)
[2016-08-08] MEDS: Citalopram 20 MG Tab PO SCH (09:07)
[2016-08-08] MEDS: Aspirin 81 MG Tab.Chew PO SCH (09:07)
[2016-08-08] MEDS: Potassium Chloride 20 MEQ Tab.ER PO SCH ×3 (09:08→21:13)
[2016-08-08] MEDS: Betamethasone Dipropionate 0.05% Crm 45 GM Tube TOP SCH ×2 (09:08→21:12)
[2016-08-08] MEDS: Carboxymethylcellulose Sodium 0.5% Ophth Soln 15 ML Bottle EYEBOTH SCH (09:09)
[2016-08-08] MEDS: Acetaminophen 500 MG Tab PO PRN ×2 (12:18→21:15)
[2016-08-08] MEDS: Enoxaparin 40 MG/0.4 ML Syringe SUBCUT SCH (21:13)
[2016-08-08] MEDS: Docusate Sodium 100 MG Cap PO PRN (21:14)
[2016-08-08] MEDS: traZODone 100 MG Tab PO SCH (21:14)
[2016-08-09] MEDS: Levothyroxine 88 MCG Tab PO SCH (05:20)
[2016-08-09] MEDS: Betamethasone Dipropionate 0.05% Crm 45 GM Tube TOP SCH ×3 (09:00→20:45)
[2016-08-09] MEDS: Chlorthalidone 25 MG Tab PO SCH (09:06)
[2016-08-09] MEDS: Potassium Chloride 20 MEQ Tab.ER PO SCH ×3 (09:06→20:44)
[2016-08-09] MEDS: Citalopram 20 MG Tab PO SCH (09:07)
[2016-08-09] MEDS: DULoxetine 30 MG Cap PO SCH ×2 (09:07→20:44)
[2016-08-09] MEDS: Aspirin 81 MG Tab.Chew PO SCH (09:07)
[2016-08-09] MEDS: Acetaminophen 500 MG Tab PO PRN (11:55)
[2016-08-09] MEDS: traZODone 100 MG Tab PO SCH (20:45)
[2016-08-09] MEDS: Enoxaparin 40 MG/0.4 ML Syringe SUBCUT SCH (20:45)
[2016-08-10] MEDS: Levothyroxine 88 MCG Tab PO SCH (06:09)
[2016-08-10] MEDS: Chlorthalidone 25 MG Tab PO SCH (08:13)
[2016-08-10] MEDS: Aspirin 81 MG Tab.Chew PO SCH (08:13)
[2016-08-10] MEDS: Citalopram 20 MG Tab PO SCH (08:13)
[2016-08-10] MEDS: DULoxetine 30 MG Cap PO SCH ×2 (08:14→21:02)
[2016-08-10] MEDS: Docusate Sodium 100 MG Cap PO PRN (08:15)
[2016-08-10] MEDS: Potassium Chloride 20 MEQ Tab.ER PO SCH ×3 (08:15→21:03)
[2016-08-10] MEDS: Betamethasone Dipropionate 0.05% Crm 45 GM Tube TOP SCH ×2 (08:15→20:40)
[2016-08-10] MEDS: Acetaminophen 500 MG Tab PO PRN ×2 (08:15→21:04)
[2016-08-10] MEDS: Enoxaparin 40 MG/0.4 ML Syringe SUBCUT SCH (21:03)
[2016-08-10] MEDS: traZODone 100 MG Tab PO SCH (21:03)
[2016-08-11] MEDS: Levothyroxine 88 MCG Tab PO SCH (05:42)
[2016-08-11] MEDS: DULoxetine 30 MG Cap PO SCH (08:36)
[2016-08-11] MEDS: Potassium Chloride 20 MEQ Tab.ER PO SCH (08:36)
[2016-08-11] MEDS: Aspirin 81 MG Tab.Chew PO SCH (08:36)
[2016-08-11] MEDS: Citalopram 20 MG Tab PO SCH (08:37)
[2016-08-11] MEDS: Betamethasone Dipropionate 0.05% Crm 45 GM Tube TOP SCH (08:37)
[2016-08-11] MEDS: Chlorthalidone 25 MG Tab PO SCH (08:37)
[2016-08-11 08:38] VITALS: BP 136/68
--- NOTE | 2016-08-12 02:13 | DISCH ---
DISCHARGE DATE: 08/11/2016 REASON FOR ADMISSION: 1. Hypokalemia. 2. Generalized weakness. 3. Physical deconditioning. DISCHARGE DIAGNOSES: Hypokalemia, generalized weakness, depression, hypertension. BRIEF HISTORY AND HOSPITAL COURSE: This is a 70-year-old female, who was admitted initially on the to the hospital acute care side for frequent falls, low potassium; was admitted for IV fluids, potassium replacement, and PT. She improved and was discharged to swing bed on the , has been there attending physical therapy, strengthening, and she is ready to go home. Her potassium has been replaced and last potassium checked was 3.5. DISCHARGE MEDICATIONS: She was discharged on the following medications. 1. Acetaminophen 1000 mg p.r.n. every 6 hours. 2. Aspirin 81 mg a day. 3. Atenolol 100 mg a day. 4. Betamethasone cream b.i.d. topically. 5. Carboxymethylcellulose to both eyes. 6. Chlorthalidone 25 mg a day. 7. Celexa 10 mg a day. 8. Cymbalta 30 mg b.i.d. 9. Docusate 100 mg daily p.r.n. 10.Levothyroxine 88 mcg daily. 11.Magnesium hydroxide 30 mL p.o. daily p.r.n. 12.Potassium chloride 20 mEq t.i.d. 13.Ambien 5 mg at night p.r.n. 14.Clonidine 0.1 mg at nine every morning. 15.Trazodone 100 mg at bedtime. FOLLOWUP: She will see PCP in a week. She will also go home with home health because she still needs supervision with medications and to continue physical therapy as necessary. Please note that I spent 45 minutes in the discharge of this patient. /[id number] ERIC/TONNY
== END 2016-08-11 10:15 | disposition home health service (06) | DRG 948 ==
LOC: FB.MS 10:16
PROVIDERS: ADMIT Family Medicine; ATTEND Family Medicine
DX: R53.1 Weakness (principal); E87.6 Hypokalemia; F32.9 Major depressive disorder, single episode, unspecified; Z79.82 Long term (current) use of aspirin; Z88.1 Allergy status to other antibiotic agents; Z91.040 Latex allergy status; Z66 Do not resuscitate; Z96.653 Presence of artificial knee joint, bilateral
CPT/HCPCS: 36415; 84132; 97110-GO; 97110-GP; 97116-GP; 97530-GO; 97530-GO-KX; 97530-GP; 97535-GO; A9270-GY; J1650

== ENCOUNTER 2016-09-21 16:28 | Inpatient (IN) | payer MEDICARE, OTHER ==
[2016-09-21] MEDS ORDERED: Magnesium Citrate Solution 296 ML Bottle PO ONE (16:51)
--- NOTE | 2016-09-21 16:53 | EDM.PDOC ---
ED HPI GENERAL MEDICAL PROBLEM - General Chief Complaint: General Stated Complaint: WEAKNESS Time Seen by Provider: 09/21/16 16:40 Source of Information: Reports: Patient, EMS, Old Records History Limitations: Reports: No Limitations - History of Present Illness INITIAL COMMENTS - FREE TEXT/NARRATIVE: 70 yo female is brought in for weakness. Was recently hospitalized for hypokalemia. Has chronic weakness that is getting worse. Has used a walker to get around for about 2 yrs now. Lives with her daughter. Before yesterday was able to walk only a short distance within the home, now cannot even do that. No hx of CVA. No recent illness other than the hypokalemia and some constipation. Onset: Gradual Duration: Chronic, Getting Worse Location: Reports: Generalized (Worse in LE's) Quality: Reports: Other (no pain) Severity: Severe Improves with: Reports: None Worsens with: Reports: Other (? time) Context: Reports: Other (Progressive over time.) Associated Symptoms: Reports: Weakness. Denies: Confusion, Chest Pain, Cough, Diaphoresis, Fever/Chills, Loss of Appetite, Malaise, Nausea/Vomiting, Rash, Seizure, Shortness of Breath Treatments FIRE WATCHER: Reports: Other (see below) (none) - Related Data Allergies Allergy/AdvReac Type Severity Reaction Status Date / Time amoxicillin Allergy Rash Verified 08/02/16 13:23 latex Allergy Cough Verified 08/02/16 13:23 Home Meds: Home Meds Aspirin 81 mg PO DAILY 07/28/16 [History] Atenolol/Chlorthalidone [Atenolol-Chlorthalidone 100-25] 1 tab PO DAILY [History] Calcium Carb/Vit D3/Minerals [Calcium 600+D Plus Minerals] 1,200 mg PO DAILY [History] Cholecalciferol (Vitamin D3) [Vitamin D3] 1,000 unit PO DAILY 07/28/16 [History] Dextran 70/Hypromellose/PF [Artificial Tears Drops] 1 each EYEBOTH BID PRN 07/28 [History] Levothyroxine [Synthroid] 88 mcg PO ACBREAKFAST 07/28/16 [History] Multivitamin [Multi-Vitamin Daily] 1 tab PO DAILY 07/28/16 [History] [place]-3S/DHA/Epa/Fish Oil [[place]-3 Fish Oil 1,200 mg Sfgl] 1,200 mg PO DAILY [History] traZODone HCl [Trazodone HCl] 100 mg PO BEDTIME 07/28/16 [History] Agilease 1 tab PO BID 07/29/16 [History] Sulfurzyme 2 tab PO BID 07/29/16 [History] Acetaminophen [Tylenol Extra Strength] 1,000 mg PO Q6H PRN #0 tablet 08/02/16 [ Rx] Docusate Sodium [Colace] 100 mg PO DAILY PRN 08/02/16 [History] Betamethasone Dipropionate [Diprosone 0.05% Crm] 1 applicful TOP BID PRN [History] Carboxymethylcellulose Sodium [Refresh Tears 0.5%] 1 drop EYEBOTH ASDIRECTED PRN 09/21/16 [History] Potassium Chloride [Klor-Con M20] 20 meq PO BID 09/21/16 [History] Past Medical History - Past Health History Medical/Surgical History: Denies Medical/Surgical History Other HEENT History: Pt wears glasses. Cardiovascular History: Reports: Hypertension Gastrointestinal History: Reports: GERD Genitourinary History: Reports: Urinary Incontinence, Other (See Below) Other Genitourinary History: overactive bladder PSYCH SPECIALIST History: Reports: , Other (See Below) Other OB/BYN History: Musculoskeletal History: Reports: Back Pain, Chronic, Osteoarthritis Psychiatric History: Reports: Depression Endocrine/Metabolic History: Reports: Hypothyroidism, Obesity/BMI 30+ Dermatologic History: Reports: Eczema - Past Surgical History Female Surgical History: Reports: Hysterectomy Social & Family History - Tobacco Use Smoking Status *Q: Never Smoker Second Hand Smoke Exposure: No - Caffeine Use Caffeine Use: Reports: None - Recreational Drug Use Recreational Drug Use: No ED ROS GENERAL - Review of Systems Review Of Systems: See Below Constitutional: Reports: Weakness. Denies: Fever, Chills, Malaise, Decreased Appetite, Weight Loss, Weight Gain HEENT: Reports: No Symptoms Respiratory: Reports: No Symptoms Cardiovascular: Reports: No Symptoms Endocrine: Reports: No Symptoms GI/Abdominal: Reports: Constipation. Denies: Abdominal Pain, Anorexia, Black Stool, Bloody Stool, Diarrhea, Distension, Flatus, Hematemesis, Hematochezia, Melena, Nausea, Stool Incontinence, Vomiting : Reports: No Symptoms Musculoskeletal: Reports: No Symptoms Skin: Reports: No Symptoms Neurological: Reports: Weakness (generalized) Psychiatric: Reports: No Symptoms ED EXAM, NEURO - Physical Exam Exam: See Below Exam Limited By: No Limitations General Appearance: Alert, WD/WN, No Apparent Distress, Obese Eye Exam: Bilateral Eye: Conjunctival Injection, Normal Inspection, PERRL Ears: Normal External Exam, Normal Canal, Hearing Grossly Normal Nose: Normal Inspection, Normal Mucosa, No Blood Throat/Mouth: Normal Inspection, Normal Lips, Normal Teeth, Normal Oropharynx, Normal Voice, No Airway Compromise Head Exam: Atraumatic, Normocephalic Neck: Normal Inspection, Supple, Non-Tender Respiratory/Chest: No Respiratory Distress, Lungs Clear, Normal Breath Sounds, No Accessory Muscle Use Cardiovascular: Regular Rate, Rhythm, No Edema GI/Abdominal: Normal Bowel Sounds, Soft, Non-Tender, No Distention Neurological: Alert, Normal Mood/Affect, CN II-XII Intact, No Motor/Sensory Deficits, Oriented x 3, Other (Diffuse LE weakness, bilateral) Back Exam: Normal Inspection. No: CVA Tenderness (R), CVA Tenderness (L) Extremities: Normal Inspection, Normal Range of Motion, Pedal Edema. No: No Pedal Edema, Increased Warmth, Redness Psychiatric: Normal Affect, Normal Mood Skin Exam: Warm, Dry, Intact, Normal Color, No Rash Course - Vital Signs Text/Narrative:: LR 1000 ml IV Last Recorded V/S: Last Vital Signs Temp 36.4 C 09/21/16 16:30 Pulse 67 09/21/16 16:30 Resp 18 09/21/16 16:30 BP 141/66 H 09/21/16 16:30 Pulse Ox 100 09/21/16 16:30 - Orders/Labs/Meds Orders: Active Orders 24 hr Category Date Time Status MAGNESIUM [CHEM] Stat Lab 09/21/16 17:39 Ordered Lactated Ringers [Ringers, Lactated] 1,000 ml Med 09/21/16 17:32 Active IV BOLUS Medication Orders Lactated Ringer's (Ringers, Lactated) 1,000 mls @ 1,000 mls/hr IV BOLUS ONE Stop: 09/21/16 18:31 Labs: Laboratory Tests 09/21/16 09/21/16 09/21/16 Range/Units 16:55 16:55 16:55 WBC 6.8 (4.5-12.0) X10-3/uL RBC 3.82 (3.23-5.20) x10(6)uL Hgb 12.1 (11.5-15.5) g/dL Hct 36.2 (30.0-51.3) % MCV 94.8 (80-96) fL MCH 31.8 (27.7-33.6) pg MCHC 33.5 (32.2-35.4) g/dL RDW 12.9 (11.5-15.5) % Plt Count 182 (125-369) X10(3)uL Sodium 140 (135-145) mmol/L Potassium 3.9 (3.5-5.3) mmol/L Chloride 107 (100-110) mmol/L Carbon Dioxide 26 (23-29) mmol/L BUN 25 H D (8-23) mg/dL Creatinine 0.9 (0.6-1.3) mg/dL Est Cr Clr Drug Dosing TNP Estimated GFR (MDRD) > 60 (>60) BUN/Creatinine Ratio 27.8 H (9-20) Glucose 107 (80-116) mg/dL Calcium 9.6 (8.6-10.2) mg/dL Troponin I < 0.01 L (0.02-0.06) NG/ML Urine Color (YELLOW) Urine Appearance (CLEAR) Urine pH (5.0-6.5) Ur Specific [place] (1.010-1.025) Urine Protein (NEGATIVE) mg/dL Urine Glucose (UA) (NEGATIVE) mg/dL Urine Ketones (NEGATIVE) mg/dL Urine Occult Blood (NEGATIVE) Urine Nitrite (NEGATIVE) Urine Bilirubin (NEGATIVE) Urine Urobilinogen (NEGATIVE) mg/dL Ur Leukocyte Esterase (NEGATIVE) Urine RBC (0) Urine WBC (0) Ur Squamous Epith Cells (NS,R,O) Urine Bacteria (NS) 09/21/16 Range/Units 17:10 WBC (4.5-12.0) X10-3/uL RBC (3.23-5.20) x10(6)uL Hgb (11.5-15.5) g/dL Hct (30.0-51.3) % MCV (80-96) fL MCH (27.7-33.6) pg MCHC (32.2-35.4) g/dL RDW (11.5-15.5) % Plt Count (125-369) X10(3)uL Sodium (135-145) mmol/L Potassium (3.5-5.3) mmol/L Chloride (100-110) mmol/L Carbon Dioxide (23-29) mmol/L BUN (8-23) mg/dL Creatinine (0.6-1.3) mg/dL Est Cr Clr Drug Dosing Estimated GFR (MDRD) (>60) BUN/Creatinine Ratio (9-20) Glucose (80-116) mg/dL Calcium (8.6-10.2) mg/dL Troponin I (0.02-0.06) NG/ML Urine Color Yellow (YELLOW) Urine Appearance Clear (CLEAR) Urine pH 6.0 (5.0-6.5) Ur Specific [place] 1.015 (1.010-1.025) Urine Protein Negative (NEGATIVE) mg/dL Urine Glucose (UA) Normal (NEGATIVE) mg/dL Urine Ketones Negative (NEGATIVE) mg/dL Urine Occult Blood Negative (NEGATIVE) Urine Nitrite Negative (NEGATIVE) Urine Bilirubin Negative (NEGATIVE) Urine Urobilinogen Normal (NEGATIVE) mg/dL Ur Leukocyte Esterase Negative (NEGATIVE) Urine RBC 0-5 (0) Urine WBC 0-5 (0) Ur Squamous Epith Cells Moderate H (NS,R,O) Urine Bacteria Moderate H (NS) Meds: Medications Generic Name Dose Route Start Last Admin Trade Name Freq PRN Reason Stop Dose Admin Lactated Ringer's 1,000 mls @ 1,000 mls/hr 09/21/16 17:32 Ringers, Lactated IV 09/21/16 18:31 BOLUS ONE Discontinued Medications Generic Name Dose Route Start Last Admin Trade Name Freq PRN Reason Stop Dose Admin Magnesium Citrate 296 ml 09/21/16 16:51 Citrate Of Magnesia PO 09/21/16 16:52 ONETIME ONE Departure - Departure Time of Disposition: 18:00 Disposition: Refer to Observation Condition: Fair Clinical Impression: Bilateral leg weakness Obesity Qualifiers: Obesity type: due to excess calories Obesity classification: unspecified obesity classification Serious obesity comorbidity presence: without serious comorbidity Qualified Code(s): E66.09 - Other obesity due to excess calories - Discharge Information - My Orders Last 24 Hours: My Active Orders 09/21/16 17:32 Lactated Ringers [Ringers, Lactated] 1,000 ml IV BOLUS 09/21/16 17:39 MAGNESIUM [CHEM] Stat - Assessment/Plan Last 24 Hours: My Active Orders 09/21/16 17:32 Lactated Ringers [Ringers, Lactated] 1,000 ml IV BOLUS 09/21/16 17:39 MAGNESIUM [CHEM] Stat
[2016-09-21] MEDS ORDERED: Lactated Ringers 1,000 ML IV ONE (17:32)
[2016-09-21] MEDS ORDERED: Polyethylene Glycol 3350 Powder 17 GM Packet PO PRN (17:43)
[2016-09-21] MEDS ORDERED: Acetaminophen 325 MG Tab PO PRN (17:43)
[2016-09-21] MEDS ORDERED: Ondansetron 4 MG Tab.DIS PO PRN (17:43)
[2016-09-21] MEDS ORDERED: Docusate Sodium 100 MG Cap PO PRN (17:53)
[2016-09-21] MEDS ORDERED: NS + KCl 20mEq/L 1,000 ML IV SCH (18:00)
[2016-09-21] MEDS ORDERED: Magnesium Citrate Solution 296 ML Bottle ONE (19:50)
[2016-09-21] MEDS: AGILEASE PO SCH (21:16)
[2016-09-21] MEDS: [UNRECOGNIZED DRUG - OTHER] PO SCH (21:17)
[2016-09-21] MEDS: Potassium Chloride 20 MEQ Tab.ER PO SCH (21:17)
[2016-09-21] MEDS: traZODone 100 MG Tab PO SCH (21:18)
[2016-09-21] MEDS: Acetaminophen 500 MG Tab PO PRN (23:11)
[2016-09-22] MEDS: Levothyroxine 88 MCG Tab PO SCH (07:27)
--- NOTE | 2016-09-22 07:41 | PCM.HP ---
H&P History of Present Illness - General Date of Service: 09/22/16 Admit Problem/Dx: Admission Diagnosis/Problem Admission Diagnosis/Problem Weakness Source of Information: Patient, Old Records, RN Notes Reviewed - History of Present Illness Initial Comments - Free Text/Narative: 70 yo female is brought in for weakness. Was recently hospitalized for hypokalemia. Has chronic weakness that is getting worse. Has used a walker to get around for about 2 yrs now. Lives with her daughter. Before yesterday was able to walk only a short distance within the home, now cannot even do that. No hx of CVA. No recent illness other than the hypokalemia and some constipation. She has history of hypertension, obesity and chronic back pain that previously were stable.. She's been admitted before for frequent falls and generalized weakness. [employer] been unable to support her in the last 2-3 days. This morning she complains of back pain but with no radiation she's able to move the legs but cannot bear weight. She denies fever or chills that she have any nausea vomiting or chest pain. No shortness of breath. - Related Data Allergies/Adverse Reactions: Allergies Allergy/AdvReac Type Severity Reaction Status Date / Time amoxicillin Allergy Rash Verified 08/02/16 13:23 latex Allergy Cough Verified 08/02/16 13:23 Home Medications: Home Meds Aspirin 81 mg PO DAILY 07/28/16 [History] Atenolol/Chlorthalidone [Atenolol-Chlorthalidone 100-25] 1 tab PO DAILY [History] Calcium Carb/Vit D3/Minerals [Calcium 600+D Plus Minerals] 1,200 mg PO DAILY [History] Cholecalciferol (Vitamin D3) [Vitamin D3] 1,000 unit PO DAILY 07/28/16 [History] Dextran 70/Hypromellose/PF [Artificial Tears Drops] 1 each EYEBOTH BID PRN 07/28 [History] Levothyroxine [Synthroid] 88 mcg PO ACBREAKFAST 07/28/16 [History] Multivitamin [Multi-Vitamin Daily] 1 tab PO DAILY 07/28/16 [History] [place]-3S/DHA/Epa/Fish Oil [[place]-3 Fish Oil 1,200 mg Sfgl] 1,200 mg PO DAILY [History] traZODone HCl [Trazodone HCl] 100 mg PO BEDTIME 07/28/16 [History] Agilease 1 tab PO BID 07/29/16 [History] Sulfurzyme 2 tab PO BID 07/29/16 [History] Acetaminophen [Tylenol Extra Strength] 1,000 mg PO Q6H PRN #0 tablet 08/02/16 [ Rx] Docusate Sodium [Colace] 100 mg PO DAILY PRN 08/02/16 [History] Betamethasone Dipropionate [Diprosone 0.05% Crm] 1 applicful TOP BID PRN [History] Carboxymethylcellulose Sodium [Refresh Tears 0.5%] 1 drop EYEBOTH ASDIRECTED PRN 09/21/16 [History] Potassium Chloride [Klor-Con M20] 20 meq PO BID 09/21/16 [History] Past Medical History - Past Health History Medical/Surgical History: Denies Medical/Surgical History HEENT History: Reports: Cataract Other HEENT History: Pt wears glasses. Cardiovascular History: Reports: Blood Clots/VTE/DVT, Hypertension Gastrointestinal History: Reports: GERD Genitourinary History: Reports: Urinary Incontinence, Other (See Below) Other Genitourinary History: overactive bladder [employer] History: Reports: , Other (See Below) Other OB/BYN History: Musculoskeletal History: Reports: Back Pain, Chronic, Osteoarthritis Psychiatric History: Reports: Depression Endocrine/Metabolic History: Reports: Hypothyroidism, Obesity/BMI 30+ Dermatologic History: Reports: Eczema Other Dermatologic History: venous ulcer to L medial malleolus & has been treating for past 1yr. - Infectious Disease History Infectious Disease History: Reports: Chicken Pox, Measles, Mumps, Rubella - Past Surgical History HEENT Surgical History: Reports: None Cardiovascular Surgical History: Reports: None GI Surgical History: Reports: None Female Surgical History: Reports: Hysterectomy Endocrine Surgical History: Reports: None Musculoskeletal Surgical History: Reports: Knee Replacement Dermatological Surgical History: Reports: None Social & Family History - Family History Family Medical History: Noncontributory - Tobacco Use Smoking Status *Q: Never Smoker Second Hand Smoke Exposure: No - Caffeine Use Caffeine Use: Reports: None - Recreational Drug Use Recreational Drug Use: No H&P Review of Systems - Review of Systems: Review Of Systems: ROS reveals no pertinent complaints other than HPI. Exam - Exam Exam: See Below - Vital Signs Vital Signs: Last Vital Signs Temp 98.4 F 09/22/16 05:00 Pulse 73 09/22/16 05:00 Resp 18 09/22/16 05:00 BP 95/51 L 09/22/16 05:00 Pulse Ox 94 L 09/22/16 05:00 Weight: 143.335 kg - Exam General: Alert, Oriented, 4 HEENT: PERRLA, Hearing Intact, Mucosa Moist & Ixl, Nares Patent, Normal Nasal Septum, Posterior Pharynx Clear, Conjunctiva Clear, EOMI, EACs Clear, TMs Clear Neck: Supple, Trachea Midline, 2 Lungs: Clear to Auscultation, Normal Respiratory Effort Cardiovascular: Regular Rate, Regular Rhythm Abdomen: Normal Bowel Sounds, Distention. No: Tenderness, Splenomegaly (Female) Exam: Deferred Rectal (Female) Exam: Deferred Back Exam: Normal Inspection, Muscle Spasm, Paraspinal Tenderness, Vertebral Tenderness Extremities: Increased Warmth Skin: Warm Neurological: Cranial Nerves Intact, Reflexes Equal Bilateral Neuro Extensive - Mental Status: Alert, Oriented x3, Normal Mood/Affect, Normal Cognition Psychiatric: Alert, Depressed - Patient Data Result Diagrams: 09/22/16 07:58 09/22/16 07:58 *Q Meaningful Use (ADM) - VTE *Q VTE Criteria *Q: - Stroke *Q Stroke Criteria *Q: - AMI *Q AMI Criteria *Q: - Problem List (1) Weakness SNOMED Code(s): 99391597 ICD Code: R53.1 - WEAKNESS Status: Acute Current Visit: No (2) HTN (hypertension) SNOMED Code(s): 48857236 ICD Code: I10 - ESSENTIAL (PRIMARY) HYPERTENSION Status: Chronic Current Visit: Yes Qualifiers: Hypertension type: essential hypertension Qualified Code(s): I10 - Essential (primary) hypertension (3) Back pain SNOMED Code(s): 527668984 ICD Code: M54.9 - DORSALGIA, UNSPECIFIED Status: Chronic Current Visit: Yes Qualifiers: Back pain location: low back pain (4) Venous stasis dermatitis Status: Acute Current Visit: Yes (5) Depression SNOMED Code(s): 41582453 ICD Code: F32.9 - MAJOR DEPRESSIVE DISORDER, SINGLE EPISODE, UNSPECIFIED Status: Chronic Current Visit: Yes Qualifiers: Depression Type: major depressive disorder Major depression recurrence: recurrent Active/Remission status: currently active (6) Hypothyroid SNOMED Code(s): 90619341 ICD Code: E03.9 - HYPOTHYROIDISM, UNSPECIFIED Status: Chronic Current Visit: Yes Qualifiers: Hypothyroidism type: acquired Qualified Code(s): E03.9 - Hypothyroidism, unspecified (7) Frequent falls SNOMED Code(s): 112956446 ICD Code: R29.6 - REPEATED FALLS Status: Acute Current Visit: Yes (8) Bilateral leg weakness SNOMED Code(s): 4878915 ICD Code: R29.898 - OTH SYMPTOMS AND SIGNS INVOLVING THE MUSCULOSKELETAL SYSTEM Status: Acute Current Visit: Yes (9) Obesity SNOMED Code(s): 651652981 ICD Code: E66.9 - OBESITY, UNSPECIFIED Status: Chronic Current Visit: Yes Qualifiers: Obesity type: due to excess calories Obesity classification: unspecified obesity classification Serious obesity comorbidity presence: without serious comorbidity Qualified Code(s): E66.09 - Other obesity due to excess calories Problem List Initiated/Reviewed/Updated: Yes Orders Last 24hrs: Active Orders 24 hr Category Date Time Status OT Evaluation and Treatment [CONS] Routine Cons 09/22/16 07:37 Ordered PT Evaluation and Treatment [CONS] Routine Cons 09/22/16 07:37 Ordered BASIC METABOLIC PANEL,BMP [CHEM] Routine Lab 09/22/16 07:37 Ordered CBC WITH AUTO DIFF [HEME] Routine Lab 09/22/16 07:37 Ordered Acetaminophen [Tylenol Extra Strength] Med 09/21/16 17:53 Active 1,000 mg PO Q6H PRN Agilease Med 09/21/16 21:00 Active 1 tab PO BID Aspirin Med 09/22/16 09:00 Active 81 mg PO DAILY Atenolol/Chlorthalidone [Tenoretic 100] Med 09/22/16 09:00 Active 1 tab PO DAILY Docusate Sodium [Colace] Med 09/21/16 17:53 Active 100 mg PO DAILY PRN Levothyroxine [Synthroid] Med 09/22/16 07:30 Active 88 mcg PO ACBREAKFAST NS + KCl 20mEq/L [Normal Saline with 20 mEq KCl] 1,000 Med 09/21/16 18:00 Active ml IV ASDIRECTED Potassium Chloride [Klor-Con M20] Med 09/21/16 21:00 Active 20 meq PO BID Sulfurzyme Med 09/21/16 21:00 Active 2 tab PO BID traZODone Med 09/21/16 21:00 Active 100 mg PO BEDTIME Medication Orders Acetaminophen (Tylenol Extra Strength) 1,000 mg PO Q6H PRN PRN Reason: Pain Last Admin: 09/21/16 23:11 Dose: 1,000 mg Aspirin (Aspirin) 81 mg PO DAILY [facility] Atenolol/Chlorthalidone (Tenoretic 100) 1 tab PO DAILY [facility] Docusate Sodium (Colace) 100 mg PO DAILY PRN PRN Reason: Constipation Enoxaparin Sodium (Lovenox) 40 mg SUBCUT DAILY [facility] Potassium Chloride/Sodium Chloride (Normal Saline With 20 Meq Kcl) 1,000 mls @ 60 mls/hr IV ASDIRECTED [facility] Last Admin: 09/21/16 20:00 Dose: 60 mls/hr Levothyroxine Sodium (Synthroid) 88 mcg PO ACBREAKFAST [facility] Last Admin: 09/22/16 07:27 Dose: 88 mcg Non-Formulary Medication 1 Each ( Agilease 1 Tab)Own Med 1 tab PO BID [facility] Last Admin: 09/21/16 21:16 Dose: 1 tab Non-Formulary Medication 1 Each ( Sulfurzyme 2 Tab) Own Med 2 tab PO BID [facility] Last Admin: 09/21/16 21:17 Dose: 2 tab Ondansetron HCl (Zofran Odt) 4 mg PO Q6H PRN PRN Reason: nausea, able to take PO Polyethylene Glycol (Miralax) 17 gm PO DAILY PRN PRN Reason: Constipation Potassium Chloride (Klor-Con M20) 20 meq PO BID [facility] Last Admin: 09/21/16 21:17 Dose: 20 meq Trazodone HCl (Trazodone) 100 mg PO BEDTIME [facility] Last Admin: 09/21/16 21:18 Dose: 100 mg Assessment/Plan Comment:: Admit the patient for physical rehabilitation and therapy. I'm concerned about warmth in the leg since she's previously had ulcers,and infection, there. We'll repeat a CBC and CMP, and make sure there is no infection brewing. Her back pain will be treated symptomatically with Tylenol or ibuprofen, and I believe physical therapy should help. I'll also continue her regular home medications, and consult with medical assisting instructor to discuss disposition for this patient.
[2016-09-22] MEDS ORDERED: Aspirin 81 MG Tab.Chew PO SCH (09:00)
[2016-09-22] MEDS ORDERED: CHLORTHALIDONE PO SCH (09:00)
[2016-09-22] MEDS ORDERED: ATENOLOL PO SCH (09:00)
[2016-09-22] MEDS: Potassium Chloride 20 MEQ Tab.ER PO SCH ×2 (09:21→21:06)
[2016-09-22] MEDS: Aspirin 81 MG Tab.EC PO SCH (09:22)
[2016-09-22] MEDS: Enoxaparin 40 MG/0.4 ML Syringe SUBCUT SCH (09:22)
[2016-09-22] MEDS: [UNRECOGNIZED DRUG - OTHER] PO SCH ×2 (09:23→21:07)
[2016-09-22] MEDS: Acetaminophen 500 MG Tab PO PRN ×2 (11:10→21:10)
[2016-09-22] MEDS: AGILEASE PO SCH ×2 (11:24→21:07)
[2016-09-22] MEDS: NS + KCl 20mEq/L 1,000 ML IV SCH (13:27)
[2016-09-22] MEDS: traZODone 100 MG Tab PO SCH (21:06)
[2016-09-23] MEDS: Acetaminophen 500 MG Tab PO PRN (04:29)
[2016-09-23] MEDS: NS + KCl 20mEq/L 1,000 ML IV SCH (06:19)
[2016-09-23] MEDS: Levothyroxine 88 MCG Tab PO SCH (08:06)
[2016-09-23] MEDS: AGILEASE PO SCH ×2 (09:22→20:20)
[2016-09-23] MEDS: Chlorthalidone 25 MG Tab PO SCH (09:23)
[2016-09-23] MEDS: traMADol 50 MG Tab PO SCH ×3 (09:24→20:28)
[2016-09-23] MEDS: Aspirin 81 MG Tab.EC PO SCH (09:26)
[2016-09-23] MEDS: Enoxaparin 40 MG/0.4 ML Syringe SUBCUT SCH (09:26)
[2016-09-23] MEDS: [UNRECOGNIZED DRUG - OTHER] PO SCH ×2 (09:26→20:22)
[2016-09-23] MEDS: Potassium Chloride 20 MEQ Tab.ER PO SCH ×2 (09:26→20:21)
--- NOTE | 2016-09-23 10:36 | PN ---
DATE SEEN: 09/23/2016 CHIEF COMPLAINT: Back pain. HISTORY OF PRESENT ILLNESS: This is a 70-year-old female complaining of back pain. She was not able to sleep well last night because of the back pain. I was also able to speak with the daughter who lives with her. The weakness has been ongoing, on and off for the last few weeks and also on the left leg. It is not painful. She denies fever or chills. She is voiding a lot more than 1800 mL overnight because of the IV fluids. PAST MEDICAL HISTORY: Hypertension, obesity, anxiety, depression, question parkinsonism, and hypothyroidism. SOCIAL HISTORY: Lives at home does not smoke. PHYSICAL EXAMINATION: VITAL SIGNS: Blood pressure is 125/71, temperature 97.5. Oxygenation 95% on room air. BACK: Lower back, tenderness in the lumbar spine. There has lumbar lordosis on inspection. EXTREMITIES: Global weakness about 4/5. NEUROLOGIC: No other focal findings. MENTAL STATUS: Alert, flat affect. LABORATORY DATA: No new labs today. IMPRESSION: 1. Chronic back pain. 2. Stable hypertension. 3. Leg weakness. 4. Frequent falls. 5. Hypothyroidism. 6. History of hypokalemia. PLAN: 1. I obtained an MRI of the lumbar spine on Sunday, convert IV to Hep-Lock, and discontinue IV fluids. 2. Tramadol 50 mg q.i.d. and Flexeril 10 mg at bedtime and continue physical rehab. /[id number] ERIC/TONNY
[2016-09-23] MEDS: traZODone 100 MG Tab PO SCH (20:21)
[2016-09-23] MEDS: Cyclobenzaprine 10 MG Tab PO SCH (20:24)
[2016-09-24] MEDS: Acetaminophen 500 MG Tab PO PRN (01:32)
[2016-09-24] MEDS: traMADol 50 MG Tab PO SCH ×4 (03:44→20:16)
[2016-09-24] MEDS: Levothyroxine 88 MCG Tab PO SCH (07:15)
[2016-09-24] MEDS: Chlorthalidone 25 MG Tab PO SCH (08:18)
[2016-09-24] MEDS: Potassium Chloride 20 MEQ Tab.ER PO SCH ×2 (08:19→20:16)
[2016-09-24] MEDS: Aspirin 81 MG Tab.EC PO SCH (08:19)
[2016-09-24] MEDS: Enoxaparin 40 MG/0.4 ML Syringe SUBCUT SCH (08:20)
[2016-09-24] MEDS: [UNRECOGNIZED DRUG - OTHER] PO SCH ×2 (08:24→20:17)
[2016-09-24] MEDS: AGILEASE PO SCH ×2 (10:35→20:18)
[2016-09-24] MEDS: Triamcinolone Acetonide 0.1% Crm 15 GM Tube TOP SCH ×2 (17:13→20:23)
--- NOTE | 2016-09-24 17:37 | PN ---
DATE SEEN: 09/24/2016 CHIEF COMPLAINT: Rash. HISTORY OF PRESENT ILLNESS: This is a 70-year-old female with a rash to the hands from eczema. She is asking for cream. She has obesity, stable. She has chronic back pain that has improved on tramadol, but she has weakness of the lower legs. REVIEW OF SYSTEMS: No recent fever or chills. No nausea or vomiting. MEDICATIONS: Reviewed. PHYSICAL EXAMINATION: GENERAL: She is not in distress. She is afebrile. VITAL SIGNS: Blood pressure is normal. MENTAL STATUS: Alert, answers question appropriately. SKIN: She had some eczema patches of dry skin on the right hand. IMPRESSION: 1. Back pain, chronic, stable. 2. Leg weakness, bilateral, unclear reason. 3. Eczematous dermatitis. 4. Obesity. PLAN: Triamcinolone cream to apply to the area twice a day. We will try to obtain an MRI tomorrow to determine the cause of the weakness of the legs. /[id number] ERIC/TONNY
[2016-09-24] MEDS: traZODone 100 MG Tab PO SCH (20:16)
[2016-09-24] MEDS: Cyclobenzaprine 10 MG Tab PO SCH (20:17)
[2016-09-25] MEDS: traMADol 50 MG Tab PO SCH ×3 (02:23→15:08)
[2016-09-25] MEDS: Levothyroxine 88 MCG Tab PO SCH (06:33)
[2016-09-25] MEDS: Triamcinolone Acetonide 0.1% Crm 15 GM Tube TOP SCH (08:37)
[2016-09-25] MEDS: Aspirin 81 MG Tab.EC PO SCH (08:37)
[2016-09-25] MEDS: Enoxaparin 40 MG/0.4 ML Syringe SUBCUT SCH (08:37)
[2016-09-25] MEDS: [UNRECOGNIZED DRUG - OTHER] PO SCH (08:37)
[2016-09-25] MEDS: Potassium Chloride 20 MEQ Tab.ER PO SCH (08:37)
[2016-09-25] MEDS: AGILEASE PO SCH (08:37)
--- NOTE | 2016-09-25 09:52 | PN ---
DATE SEEN: 09/25/2016 CHIEF COMPLAINT: Low back pain. HISTORY OF PRESENT ILLNESS: A 70-year-old female has been admitted for back pain and weakness of the legs. She has been unable to stand on self or bear weight in the lower extremities. Pain is controlled on tramadol. REVIEW OF SYSTEMS: No urinary symptoms. No fever or chills. MEDICATIONS: Reviewed. PHYSICAL EXAMINATION: GENERAL: She is pleasant. VITAL SIGNS: Her blood pressure is 100/55, pulse 63, and temp 97.6. BACK: Lower back lumbar lordosis. EXTREMITIES: Minimal edema. Mild redness. No warmth. MENTAL STATUS: Flat affect. Normal intelligence memory. IMPRESSION: 1. Chronic back pain. 2. Leg weakness. 3. Obesity. PLAN: MRI possibly today. I suggest that we will discharge the patient today to swing bed for physical rehab. As we wait for the MRI results, continue the current medications. /[id number] ERIC/TONNY
[2016-09-25 10:33] VITALS: BP 108/60
[2016-09-25] MEDS: Chlorthalidone 25 MG Tab PO SCH (10:36)
--- NOTE | 2016-09-26 11:12 | DISCH ---
DISCHARGE DATE: 09/25/2016 REASON FOR ADMISSION: 1. Weakness of the legs. 2. Back pain. 3. Obesity. 4. Eczema. DISCHARGE DIAGNOSES: 1. Weakness of the legs. 2. Back pain. 3. Obesity. 4. Eczema. CONSULTATIONS: Physical Therapy. BRIEF HISTORY AND HOSPITAL COURSE: A 70-year-old female, who lives at home alone with her daughter. She was brought in because she was unable to support herself with the legs. She also had chronic back pain. She has a nonhealing ulcer on the leg that has been stable recently. REVIEW OF SYSTEMS: No fever or chills. No urinary symptoms. HOSPITAL COURSE: She did well with the exception of not able to walk. An MRI has been ordered today, but it is deemed necessary that she go to swing bed for rehab. DISCHARGE MEDICATIONS: Tramadol 50 mg t.i.d. p.r.n., triamcinolone 0.1% cream b.i.d., MiraLAX 17 g p.o. every night p.r.n., levothyroxine 88 mcg daily, docusate 100 mg daily p.r.n., Flexeril 10 mg at bedtime, atenolol 100 mg daily, chlorthalidone 25 mg a day, aspirin 81 mg a day, Agilease one tablet b.i.d., and trazodone 100 mg at bedtime. FOLLOW UP: We will continue the swing bed. Followup with Physical Therapy. I will obtain the MRI hopefully today or tomorrow to delineate further treatment. I spent more than 35 minutes in the discharge of the patient. /[id number] ERIC/TONNY
== END 2016-09-25 15:59 | disposition swing bed (61) | DRG 948 ==
LOC: FB.ED 16:28 → FB.MS 17:46 → OBSVTOIN 09-22 13:33
PROVIDERS: ADMIT Emergency Medicine; ATTEND Family Medicine
DX: R53.1 Weakness (principal); M54.5 Low back pain; G89.29 Other chronic pain; E66.9 Obesity, unspecified; L30.9 Dermatitis, unspecified; K21.9 Gastro-esophageal reflux disease without esophagitis; E03.9 Hypothyroidism, unspecified; M19.90 Unspecified osteoarthritis, unspecified site; I10 Essential (primary) hypertension; R29.6 Repeated falls
CPT/HCPCS: 36415 ×2; 80048 ×2; 81001; 83735; 84484; 85025; 85027; 96365; 96366 ×2; 96372; 97165; 99285; A9270 ×12; G0378 ×2; J1650; J3480 ×2; 72148; 97110-GO; 97110-GP; 97162-GP; 97530-GO; 97530-GO-KX; 97530-GP; 99284

== ENCOUNTER 2016-09-25 16:00 | Inpatient (IN) | payer MEDICARE, OTHER ==
[2016-09-25] MEDS ORDERED: [UNRECOGNIZED DRUG - OTHER] EYEBOTH PRN (17:10)
[2016-09-25] MEDS ORDERED: EAC EYEBOTH PRN (17:10)
[2016-09-25] MEDS ORDERED: Docusate Sodium 100 MG Cap PO PRN (17:10)
[2016-09-25] MEDS ORDERED: HYPROMELLOSE EYEBOTH PRN (17:10)
[2016-09-25] MEDS ORDERED: DEXTRAN EYEBOTH PRN (17:10)
[2016-09-25] MEDS: Triamcinolone Acetonide 0.1% Crm 15 GM Tube TOP SCH (20:27)
[2016-09-25] MEDS: traZODone 100 MG Tab PO SCH (20:30)
[2016-09-25] MEDS: Cyclobenzaprine 10 MG Tab PO SCH (20:30)
[2016-09-25] MEDS: traMADol 50 MG Tab PO PRN (20:37)
[2016-09-26] MEDS: traMADol 50 MG Tab PO PRN (05:03)
[2016-09-26] MEDS: Levothyroxine 88 MCG Tab PO SCH (07:26)
[2016-09-26] MEDS: Aspirin 81 MG Tab.EC PO SCH (08:38)
[2016-09-26] MEDS: Calcium Carbonate/Vitamin D3 1250 MG-200 Unit Tab PO SCH (08:38)
[2016-09-26] MEDS: Fish Oil/Omega-3 Fatty Acids 1 Gm Cap PO SCH (08:38)
[2016-09-26] MEDS: AGILEASE PO SCH ×2 (08:41→20:57)
[2016-09-26] MEDS: Multivitamin Tab PO SCH (08:41)
[2016-09-26] MEDS: Cholecalciferol (Vitamin D3) 1,000 Unit Tab PO SCH (08:42)
[2016-09-26] MEDS: Triamcinolone Acetonide 0.1% Crm 15 GM Tube TOP SCH ×2 (08:42→21:00)
[2016-09-26] MEDS: Carboxymethylcellulose Sodium 0.5% Ophth Soln 15 ML Bottle EYEBOTH PRN (08:44)
[2016-09-26] MEDS: [UNRECOGNIZED DRUG - OTHER] PO SCH ×2 (08:51→20:58)
--- NOTE | 2016-09-26 11:34 | PN ---
DATE SEEN: 09/26/2016 SUBJECTIVE: I spoke with the neurosurgeon today after I reviewed the MRI. The neurosurgeon looked at the MRI and there is a large disk that is displaced to the left. He wanted to know if the patient has pain and weakness mostly on the left, which in this case the patient only complains of back pain and weakness of the legs, both. As such, he recommended we try conservative measure like Neurontin, NSAIDs, or Medrol Dosepak, and if her symptoms get worse especially if she develops pain in the left leg, then I think she will be a candidate for surgical intervention. I ordered prednisone for 5 days and discontinue tramadol. /[id number] ERIC/TONNY
[2016-09-26] MEDS ORDERED: methylPREDNISolone 4 MG Tab 21 Tab/Dosepak PO SCH (13:00)
[2016-09-26] MEDS: methylPREDNISolone 4 MG Tab 21 Tab/Dosepak PO SCH ×2 (19:29→20:57)
[2016-09-26] MEDS: Cyclobenzaprine 10 MG Tab PO SCH (20:57)
[2016-09-26] MEDS: traZODone 100 MG Tab PO SCH (20:58)
[2016-09-27] MEDS: Levothyroxine 88 MCG Tab PO SCH (08:19)
[2016-09-27] MEDS: Calcium Carbonate/Vitamin D3 1250 MG-200 Unit Tab PO SCH (08:20)
[2016-09-27] MEDS: Fish Oil/Omega-3 Fatty Acids 1 Gm Cap PO SCH (08:20)
[2016-09-27] MEDS: Aspirin 81 MG Tab.EC PO SCH (08:20)
[2016-09-27] MEDS: methylPREDNISolone 4 MG Tab 21 Tab/Dosepak PO SCH ×4 (08:21→21:15)
[2016-09-27] MEDS: [UNRECOGNIZED DRUG - OTHER] PO SCH ×2 (08:23→21:14)
[2016-09-27] MEDS: Multivitamin Tab PO SCH (08:23)
[2016-09-27] MEDS: AGILEASE PO SCH ×2 (08:23→21:13)
[2016-09-27] MEDS: Cholecalciferol (Vitamin D3) 1,000 Unit Tab PO SCH (08:24)
[2016-09-27] MEDS: Triamcinolone Acetonide 0.1% Crm 15 GM Tube TOP SCH ×2 (08:24→21:15)
[2016-09-27] MEDS: Carboxymethylcellulose Sodium 0.5% Ophth Soln 15 ML Bottle EYEBOTH PRN (08:29)
[2016-09-27] MEDS: traZODone 100 MG Tab PO SCH (21:14)
[2016-09-27] MEDS: Cyclobenzaprine 10 MG Tab PO SCH (21:15)
[2016-09-28] MEDS: Acetaminophen 500 MG Tab PO PRN (03:20)
[2016-09-28] MEDS: Levothyroxine 88 MCG Tab PO SCH (08:15)
[2016-09-28] MEDS: Calcium Carbonate/Vitamin D3 1250 MG-200 Unit Tab PO SCH (08:20)
[2016-09-28] MEDS: Fish Oil/Omega-3 Fatty Acids 1 Gm Cap PO SCH (08:20)
[2016-09-28] MEDS: Aspirin 81 MG Tab.EC PO SCH (08:21)
[2016-09-28] MEDS: methylPREDNISolone 4 MG Tab 21 Tab/Dosepak PO SCH ×4 (08:22→20:27)
[2016-09-28] MEDS: AGILEASE PO SCH ×2 (08:23→20:18)
[2016-09-28] MEDS: [UNRECOGNIZED DRUG - OTHER] PO SCH ×2 (08:24→20:20)
[2016-09-28] MEDS: Multivitamin Tab PO SCH (08:30)
[2016-09-28] MEDS: Cholecalciferol (Vitamin D3) 1,000 Unit Tab PO SCH (08:58)
[2016-09-28] MEDS: Triamcinolone Acetonide 0.1% Crm 15 GM Tube TOP SCH ×2 (09:00→20:21)
[2016-09-28] MEDS: Cyclobenzaprine 10 MG Tab PO SCH (20:19)
[2016-09-28] MEDS: traZODone 100 MG Tab PO SCH (20:20)
[2016-09-29] MEDS: Acetaminophen 500 MG Tab PO PRN ×3 (02:57→17:35)
[2016-09-29] MEDS: Levothyroxine 88 MCG Tab PO SCH (06:37)
[2016-09-29] MEDS: methylPREDNISolone 4 MG Tab 21 Tab/Dosepak PO SCH ×3 (09:06→21:09)
[2016-09-29] MEDS: Calcium Carbonate/Vitamin D3 1250 MG-200 Unit Tab PO SCH (09:06)
[2016-09-29] MEDS: Fish Oil/Omega-3 Fatty Acids 1 Gm Cap PO SCH (09:06)
[2016-09-29] MEDS: [UNRECOGNIZED DRUG - OTHER] PO SCH ×2 (09:07→21:04)
[2016-09-29] MEDS: Aspirin 81 MG Tab.EC PO SCH (09:07)
[2016-09-29] MEDS: Multivitamin Tab PO SCH (09:07)
[2016-09-29] MEDS: AGILEASE PO SCH ×2 (09:07→21:02)
[2016-09-29] MEDS: Triamcinolone Acetonide 0.1% Crm 15 GM Tube TOP SCH ×2 (09:08→21:07)
[2016-09-29] MEDS: Cholecalciferol (Vitamin D3) 1,000 Unit Tab PO SCH (09:08)
--- NOTE | 2016-09-29 15:42 | PN ---
DATE SEEN: 09/29/2016 HISTORY: Stephanie is a 70-year-old woman from [facility], who was had increasing and progressive leg weakness and low back pain for the past couple of years. She had MRI back in 2013 which showed multilevel lumbar disk disease with a moderate sized L2-L3 disk herniation with inferior migration. She has had conservative treatment with physical therapy but seemed to slowly gotten worse. The patient was admitted to Acute Care at [place] from the ER on 09/21/2016 because of weakness, she had up to that time been able to walk with a walker, but now cannot get herself up, walk unassisted etc. For this reason, she was admitted to acute care for further investigation and on September,, she was transferred to swing bed for continued therapy. MRI of the lumbar spine has been repeated and shows again the large disk migration from L2-L3 downwards. The patient says the back pain is intermittent and at times when she does not have back pain, she is still having significant weakness with inability to walk. She also reports her arms seemed to be weak such that she has had, but she is still able to use her walker. PAST MEDICAL HISTORY: Positive for type 2 diabetes. She has a history of a DVT. She has had total knee arthroplasties bilaterally. She is status post TAHBSO for benign reasons and has had previous ankle sprains. She has chronic essential hypertension, GERD, overactive bladder, osteoarthritis, depression, hypothyroidism, obesity, eczema and she is 1, para 1 with a normal delivery. REVIEW OF SYSTEMS: Negative for recent infections. No fever or chills. She occasionally gets right-sided neck pain with right-sided headache that she attributes to osteoarthritis of the neck. No sore throat or URI symptoms. No cough or purulent sputum. No chest pain or palpitations. No abdominal pain, nausea, diarrhea, constipation, hematochezia, or melena. No hematuria or UTI symptoms. No joint inflammation, swelling, skin rash, or mood instability. She does have some depression related to her ambulatory difficulties. PHYSICAL EXAMINATION: GENERAL: She is alert and a good historian. She is somewhat slow in speech and activities and has parkinsonian appearing facial features. HEENT: Shows TMs to be clear. Pupils are equal and reactive. Oropharynx clear with adequate mucous membrane moisture. NECK: Supple. Thyroid is normal. LUNGS: Clear with good air movement to the bases. HEART: Regular without murmur, rub, or gallop. ABDOMEN: Obese, soft. Normal bowel sounds. Nontender. No masses. No organomegaly. EXTREMITIES: Warm and well perfused. No significant edema. NEUROLOGIC: Reveals her mental status to be intact. Motor exam appears symmetric in the upper extremities. Lower extremities; however, she has apparent quads weakness bilaterally with left greater than right. She is able to dorsiflex both feet. Reflexes absent at the ankle jerks. LABORATORY STUDIES: White count 4900, hemoglobin 11.5, platelets 186. Electrolytes normal. Creatinine 0.8, magnesium 1.9. Urinalysis clear. ASSESSMENT: 1. A 70-year-old woman with progressive left leg weakness, ambulatory disability, low back pain, and evidence of chronic large left lumbar disk herniation. 2. History of type 2 diabetes. 3. Remote history of deep vein thrombosis left lower extremity. 4. Depression. 5. Chronic essential hypertension. 6. Osteoarthritis of the lumbar and cervical spines as well as knees. 7. Chronic hypothyroidism. PLAN: 1. She has been started on a Medrol dose pack for the back pain as well as getting physical therapy and rehab. If not making progress with this conservative therapy, consider a neurosurgical referral. 2. This patient will require several more days of swing bed therapy with the goal of returning to home again. /[id number] LISHA/TONNY
[2016-09-29] MEDS: Cyclobenzaprine 10 MG Tab PO SCH (21:02)
[2016-09-29] MEDS: traZODone 100 MG Tab PO SCH (21:05)
[2016-09-30] MEDS: Acetaminophen 500 MG Tab PO PRN ×2 (01:28→21:51)
[2016-09-30] MEDS: Levothyroxine 88 MCG Tab PO SCH (08:00)
[2016-09-30] MEDS: Calcium Carbonate/Vitamin D3 1250 MG-200 Unit Tab PO SCH (08:34)
[2016-09-30] MEDS: methylPREDNISolone 4 MG Tab 21 Tab/Dosepak PO SCH ×2 (08:34→21:36)
[2016-09-30] MEDS: Fish Oil/Omega-3 Fatty Acids 1 Gm Cap PO SCH (08:35)
[2016-09-30] MEDS: Aspirin 81 MG Tab.EC PO SCH (08:35)
[2016-09-30] MEDS: Multivitamin Tab PO SCH (08:35)
[2016-09-30] MEDS: Triamcinolone Acetonide 0.1% Crm 15 GM Tube TOP SCH ×2 (08:36→21:39)
[2016-09-30] MEDS: AGILEASE PO SCH ×2 (08:36→21:38)
[2016-09-30] MEDS: [UNRECOGNIZED DRUG - OTHER] PO SCH ×2 (08:36→21:38)
[2016-09-30] MEDS: Cholecalciferol (Vitamin D3) 1,000 Unit Tab PO SCH (08:37)
[2016-09-30] MEDS: Cyclobenzaprine 10 MG Tab PO SCH (21:40)
[2016-09-30] MEDS: traZODone 100 MG Tab PO SCH (21:42)
[2016-10-01] MEDS ORDERED: methylPREDNISolone 4 MG Tab 21 Tab/Dosepak PO SCH (08:00)
[2016-10-01] MEDS: Levothyroxine 88 MCG Tab PO SCH (08:29)
[2016-10-01] MEDS: methylPREDNISolone 4 MG Tab 21 Tab/Dosepak PO SCH (08:30)
[2016-10-01] MEDS: Calcium Carbonate/Vitamin D3 1250 MG-200 Unit Tab PO SCH (08:31)
[2016-10-01] MEDS: Aspirin 81 MG Tab.EC PO SCH (08:32)
[2016-10-01] MEDS: Fish Oil/Omega-3 Fatty Acids 1 Gm Cap PO SCH (08:32)
[2016-10-01] MEDS: AGILEASE PO SCH ×2 (08:33→21:02)
[2016-10-01] MEDS: [UNRECOGNIZED DRUG - OTHER] PO SCH ×2 (08:33→21:02)
[2016-10-01] MEDS: Cholecalciferol (Vitamin D3) 1,000 Unit Tab PO SCH (08:34)
[2016-10-01] MEDS: Multivitamin Tab PO SCH (08:34)
[2016-10-01] MEDS: Triamcinolone Acetonide 0.1% Crm 15 GM Tube TOP SCH ×2 (08:35→20:59)
--- NOTE | 2016-10-01 10:53 | PN ---
DATE SEEN: 10/01/2016 SUBJECTIVE: Stephanie is a 71-year-old, admitted to acute care with leg weakness. She had back pain and MRI showing lumbar disk herniation at L2 with inferior migration. Phone consultation was held with the Neurosurgery Department by Dr. Martínez, who recommended conservative treatment. She has been getting physical therapy and medications including oral steroid. She seems to be improving and her back pain is less, however, her leg weakness is very slow to improve. She does state that she is stronger now than she was a week ago. However, she was out on pass for her birthday yesterday and tolerated this satisfactorily. She remains in swing bed at [place]. OBJECTIVE: GENERAL: She is alert. She does have a parkinsonian appearance to her face with slowed motor activity. MOUTH: Clear. VITAL SIGNS: Blood pressure 123/67, pulse is 66 and regular, respirations 18, temperature 97.6. NEUROLOGIC: Motor exam, appears symmetric. EXTREMITIES: She has trace edema at the ankles. ASSESSMENT: Lumbar disk disease with weakness, question underlying Parkinson's or other neuromuscular disorder. PLAN: We will follow up lab testing in the morning. Continue physical therapy. She has an appointment set up with Neurosurgery in [place] on October 24 and will also seek a neurological evaluation in [place]. We will continue to provide intervention for this in terms the of physical therapy, medications, and also provide palliative care for underlying pain and weakness. /[id number] LISHA/TONNY
[2016-10-01] MEDS: Acetaminophen 500 MG Tab PO PRN ×2 (15:41→21:12)
[2016-10-01] MEDS: Cyclobenzaprine 10 MG Tab PO SCH (21:01)
[2016-10-01] MEDS: traZODone 100 MG Tab PO SCH (21:03)
[2016-10-01] MEDS: Dexamethasone 4 MG Tab PO SCH (21:10)
[2016-10-02] MEDS: Levothyroxine 88 MCG Tab PO SCH (07:34)
[2016-10-02] MEDS: Acetaminophen 500 MG Tab PO PRN ×2 (07:37→21:35)
[2016-10-02] MEDS: Calcium Carbonate/Vitamin D3 1250 MG-200 Unit Tab PO SCH (08:53)
[2016-10-02] MEDS: Cholecalciferol (Vitamin D3) 1,000 Unit Tab PO SCH (08:54)
[2016-10-02] MEDS: AGILEASE PO SCH ×2 (08:54→21:32)
[2016-10-02] MEDS: Aspirin 81 MG Tab.EC PO SCH (08:54)
[2016-10-02] MEDS: Atenolol 50 MG Tab PO SCH (08:54)
[2016-10-02] MEDS: Multivitamin Tab PO SCH (08:54)
[2016-10-02] MEDS: Fish Oil/Omega-3 Fatty Acids 1 Gm Cap PO SCH (08:54)
[2016-10-02] MEDS: [UNRECOGNIZED DRUG - OTHER] PO SCH ×2 (08:54→21:32)
[2016-10-02] MEDS: Dexamethasone 4 MG Tab PO SCH ×2 (08:54→21:31)
[2016-10-02] MEDS: Triamcinolone Acetonide 0.1% Crm 15 GM Tube TOP SCH ×2 (08:55→21:33)
--- NOTE | 2016-10-02 10:20 | PN ---
DATE SEEN: 10/02/2016 SUBJECTIVE: Stephanie is a 71-year-old woman who has had progressive lower extremity weakness and ambulatory difficulty over the past couple of years. She states that she had an injury to her low back where she was leaning forward to start her car when she got a sudden severe pain in the low back, and she was treated conservatively and MRI revealed disc bulges. She underwent medication, nerve block both analgesics and both narcotic analgesic, nerve blocking medications, lumbar epidural steroid injection [facility] but never completely resolved the back pain. Over the past few weeks, she has had slowly worsening ambulation with weakness, particularly on the left leg side she says that her left leg is untrustworthy and will give out when she walks. She was admitted to [facility] on September 22 for the weakness. She has been on steroid and getting physical therapy with very minimal improvement. She also reports chronic problems with her bladder with incontinence and occasional stool incontinence. OBJECTIVE: GENERAL: The patient is alert and conversant. She is mildly forgetful for details. VITAL SIGNS: Blood pressure 123/87, pulse 66 and regular, respirations 18, temp 97.6, O2 saturation 97% on room air. SKIN: Clear. LUNGS: Clear. HEART: Regular. Respirations easy. ABDOMEN: Soft, obese, nontender. EXTREMITIES: Showed trace edema at the ankles. NEUROLOGIC: Reveals significant weakness to quads testing left greater than right leg. She can cannot get her heel up off the floor from a sitting position on the left leg but if I lift it up, she can hold it for a few seconds off the floor. Right leg she is able to extend her leg lifting the heel up off the floor. Physical therapy treatment shows that she had difficulty with standing but could stand on the 3rd try. She walked in 10 feet with a walker, but was also noted to have left greater than right leg weakness. LABORATORY DATA: CBCs normal. Electrolytes normal. CK normal. ASSESSMENT: 1. Leg weakness with MRI evidence of a large lumbar disc herniation. 2. Chronic essential hypertension. 3. Bladder incontinence. 4. Osteoarthritis of the lumbar spine. 5. Hypothyroidism. PLAN: She has a neurosurgical appointment set up for mid-October. We will keep that in place; however, additionally I will try to get her in sooner. Additionally, I will discuss with Neurosurgery possible sooner evaluation for consideration of surgical treatment of her lumbar disc herniation. We will continue her steroid and physical therapy use in the meantime. /[id number] LISHA/TONNY
--- NOTE | 2016-10-02 14:15 | PN ---
DATE SEEN: 10/02/2016 SUBJECTIVE: Stephanie is in with leg weakness and enlarged left lumbar disk herniation. She is made slight but slow progress in physical therapy. Phone consultation was held with Dr. Garcia at [facility] in [place] from Neurosurgery. He recommends follow up with an appointment in Neurosurgical Clinic and has offered if any discrete worsening, visit to the emergency room with potential or urgent neurosurgical consultation. I have discussed this with Stephanie and her daughter and for now, we will keep the appointment as scheduled with Neurosurgery at [place] on October 24, 2016. She also had a bladder residual of 200 mL today and I do not think that she is having bladder dysfunction secondary to lumbar disk disease. Continue therapy and medications. /[id number] LISHA/TONNY
[2016-10-02] MEDS: Cyclobenzaprine 10 MG Tab PO SCH (21:31)
[2016-10-02] MEDS: traZODone 100 MG Tab PO SCH (21:32)
[2016-10-03] MEDS: Acetaminophen 500 MG Tab PO PRN ×2 (04:07→20:18)
[2016-10-03] MEDS: Levothyroxine 88 MCG Tab PO SCH (08:43)
[2016-10-03] MEDS: Fish Oil/Omega-3 Fatty Acids 1 Gm Cap PO SCH (08:43)
[2016-10-03] MEDS: Dexamethasone 4 MG Tab PO SCH ×2 (08:43→20:17)
[2016-10-03] MEDS: Calcium Carbonate/Vitamin D3 1250 MG-200 Unit Tab PO SCH (08:43)
[2016-10-03] MEDS: Aspirin 81 MG Tab.EC PO SCH (08:43)
[2016-10-03] MEDS: Atenolol 50 MG Tab PO SCH (08:44)
[2016-10-03] MEDS: Multivitamin Tab PO SCH (08:44)
[2016-10-03] MEDS: Cholecalciferol (Vitamin D3) 1,000 Unit Tab PO SCH (08:44)
[2016-10-03] MEDS: [UNRECOGNIZED DRUG - OTHER] PO SCH ×2 (08:45→20:17)
[2016-10-03] MEDS: AGILEASE PO SCH ×2 (08:45→20:17)
[2016-10-03] MEDS: Triamcinolone Acetonide 0.1% Crm 15 GM Tube TOP SCH ×2 (08:49→20:18)
[2016-10-03] MEDS: traZODone 100 MG Tab PO SCH (20:17)
[2016-10-03] MEDS: Cyclobenzaprine 10 MG Tab PO SCH (20:17)
[2016-10-04] MEDS: Acetaminophen 500 MG Tab PO PRN ×2 (04:16→12:22)
[2016-10-04] MEDS: Levothyroxine 88 MCG Tab PO SCH (07:29)
[2016-10-04] MEDS: Dexamethasone 4 MG Tab PO SCH ×2 (08:35→21:13)
[2016-10-04] MEDS: Calcium Carbonate/Vitamin D3 1250 MG-200 Unit Tab PO SCH (08:35)
[2016-10-04] MEDS: Aspirin 81 MG Tab.EC PO SCH (08:36)
[2016-10-04] MEDS: Ciclopirox 0.77% Crm 15 GM Tube TOP SCH ×2 (08:36→21:19)
[2016-10-04] MEDS: Fish Oil/Omega-3 Fatty Acids 1 Gm Cap PO SCH (08:36)
[2016-10-04] MEDS: AGILEASE PO SCH ×2 (08:37→21:13)
[2016-10-04] MEDS: [UNRECOGNIZED DRUG - OTHER] PO SCH ×2 (08:37→21:13)
[2016-10-04] MEDS: Multivitamin Tab PO SCH (08:37)
[2016-10-04] MEDS: Atenolol 50 MG Tab PO SCH (08:37)
[2016-10-04] MEDS: Cholecalciferol (Vitamin D3) 1,000 Unit Tab PO SCH (08:38)
[2016-10-04] MEDS: Triamcinolone Acetonide 0.1% Crm 15 GM Tube TOP SCH ×2 (08:42→21:15)
[2016-10-04] MEDS: traZODone 100 MG Tab PO SCH (21:13)
[2016-10-05] MEDS: Acetaminophen 500 MG Tab PO PRN ×2 (01:03→14:25)
[2016-10-05] MEDS: Levothyroxine 88 MCG Tab PO SCH (06:58)
[2016-10-05] MEDS: Calcium Carbonate/Vitamin D3 1250 MG-200 Unit Tab PO SCH (08:03)
[2016-10-05] MEDS: Multivitamin Tab PO SCH (08:04)
[2016-10-05] MEDS: Cholecalciferol (Vitamin D3) 1,000 Unit Tab PO SCH (08:04)
[2016-10-05] MEDS: Fish Oil/Omega-3 Fatty Acids 1 Gm Cap PO SCH (08:04)
[2016-10-05] MEDS: Aspirin 81 MG Tab.EC PO SCH (08:04)
[2016-10-05] MEDS: Atenolol 50 MG Tab PO SCH (08:04)
[2016-10-05] MEDS: [UNRECOGNIZED DRUG - OTHER] PO SCH ×2 (08:05→20:05)
[2016-10-05] MEDS: Triamcinolone Acetonide 0.1% Crm 15 GM Tube TOP SCH ×2 (08:05→20:04)
[2016-10-05] MEDS: AGILEASE PO SCH ×2 (08:05→20:05)
[2016-10-05] MEDS: Ciclopirox 0.77% Crm 15 GM Tube TOP SCH ×2 (08:06→20:04)
--- NOTE | 2016-10-05 13:37 | PN ---
DATE SEEN: 10/05/2016 SUBJECTIVE: Stephanie is a 71-year-old woman with a large lumbar disk herniation, who has been treated with conservative therapy. She has significant quad weakness on the left leg. MRI has been done and has confirmed the disk problem. She has an appointment scheduled for neurosurgical evaluation at [facility], in approximately 2 weeks. Stephanie has been getting physical therapy. She has been on oral steroid. She is improving according to her and Physical Therapy. She still states that at times her left leg will want to give out when she is walking. OBJECTIVE: GENERAL: She is alert and comfortable. She is a good historian. VITAL SIGNS: Pulse is regular. RESPIRATIONS: Easy and nonlabored. MOTOR EXAM: Reveals continued leg weakness with left quad weakness prominent. LABORATORY DATA: Sedimentation rate 17. Electrolytes normal. Creatinine 0.9. TSH 0.56. Echocardiogram has been done showing an ejection fraction of 55%. Normal valves and mild diastolic dysfunction, but no wall motion abnormalities. ASSESSMENT: 1. Large lumbar disk herniation with left quadriceps weakness secondary to impingement neuropathy. 2. Chronic low back pain. 3. Obesity. 4. Mild dependant peripheral edema with normal cardiac output. 5. Hypothyroidism, adequately replaced. PLAN: We will continue physical therapy with plans for her to return to her home next week. We will continue to provide palliative measures for her back pain and underlying medical problems. /[id number] RO/MODL
[2016-10-05] MEDS: traZODone 100 MG Tab PO SCH (20:06)
[2016-10-05] MEDS: Carboxymethylcellulose Sodium 0.5% Ophth Soln 15 ML Bottle EYEBOTH PRN (20:08)
[2016-10-06] MEDS: Acetaminophen 500 MG Tab PO PRN ×2 (04:16→11:25)
[2016-10-06] MEDS: Levothyroxine 88 MCG Tab PO SCH (08:39)
[2016-10-06] MEDS: Calcium Carbonate/Vitamin D3 1250 MG-200 Unit Tab PO SCH (08:43)
[2016-10-06] MEDS: Aspirin 81 MG Tab.EC PO SCH (08:44)
[2016-10-06] MEDS: Ciclopirox 0.77% Crm 15 GM Tube TOP SCH ×2 (08:44→21:59)
[2016-10-06] MEDS: Fish Oil/Omega-3 Fatty Acids 1 Gm Cap PO SCH (08:44)
[2016-10-06] MEDS: [UNRECOGNIZED DRUG - OTHER] PO SCH ×2 (08:45→20:41)
[2016-10-06] MEDS: AGILEASE PO SCH ×2 (08:45→20:39)
[2016-10-06] MEDS: Multivitamin Tab PO SCH (08:45)
[2016-10-06] MEDS: Cholecalciferol (Vitamin D3) 1,000 Unit Tab PO SCH (08:46)
[2016-10-06] MEDS: Triamcinolone Acetonide 0.1% Crm 15 GM Tube TOP SCH ×2 (09:15→20:45)
[2016-10-06] MEDS: Atenolol 50 MG Tab PO SCH (10:24)
[2016-10-06] MEDS: Diclofenac Sodium 75 MG Tab.EC PO PRN (16:32)
[2016-10-06] MEDS: traZODone 100 MG Tab PO SCH (20:44)
[2016-10-07] MEDS: Acetaminophen 500 MG Tab PO PRN ×3 (03:18→21:42)
[2016-10-07] MEDS: Levothyroxine 88 MCG Tab PO SCH (08:49)
[2016-10-07] MEDS: Calcium Carbonate/Vitamin D3 1250 MG-200 Unit Tab PO SCH (08:52)
[2016-10-07] MEDS: Fish Oil/Omega-3 Fatty Acids 1 Gm Cap PO SCH (08:53)
[2016-10-07] MEDS: Aspirin 81 MG Tab.EC PO SCH (08:53)
[2016-10-07] MEDS: Cholecalciferol (Vitamin D3) 1,000 Unit Tab PO SCH (08:53)
[2016-10-07] MEDS: [UNRECOGNIZED DRUG - OTHER] PO SCH ×2 (08:53→21:15)
[2016-10-07] MEDS: Multivitamin Tab PO SCH (08:53)
[2016-10-07] MEDS: AGILEASE PO SCH ×2 (08:53→21:15)
[2016-10-07] MEDS: Atenolol 50 MG Tab PO SCH (08:54)
[2016-10-07] MEDS: Ciclopirox 0.77% Crm 15 GM Tube TOP SCH ×2 (08:55→21:15)
[2016-10-07] MEDS: Triamcinolone Acetonide 0.1% Crm 15 GM Tube TOP SCH ×2 (09:00→21:15)
[2016-10-07] MEDS: Diclofenac Sodium 75 MG Tab.EC PO PRN (13:45)
[2016-10-07] MEDS: traZODone 100 MG Tab PO SCH (21:16)
[2016-10-08] MEDS: Acetaminophen 500 MG Tab PO PRN ×3 (04:10→20:04)
[2016-10-08] MEDS: Levothyroxine 88 MCG Tab PO SCH (07:56)
[2016-10-08] MEDS: Calcium Carbonate/Vitamin D3 1250 MG-200 Unit Tab PO SCH (08:32)
[2016-10-08] MEDS: Fish Oil/Omega-3 Fatty Acids 1 Gm Cap PO SCH (08:33)
[2016-10-08] MEDS: Aspirin 81 MG Tab.EC PO SCH (08:33)
[2016-10-08] MEDS: Ciclopirox 0.77% Crm 15 GM Tube TOP SCH ×2 (08:33→21:38)
[2016-10-08] MEDS: [UNRECOGNIZED DRUG - OTHER] PO SCH ×2 (08:34→21:35)
[2016-10-08] MEDS: Multivitamin Tab PO SCH (08:34)
[2016-10-08] MEDS: AGILEASE PO SCH ×2 (08:34→21:36)
[2016-10-08] MEDS: Atenolol 50 MG Tab PO SCH (08:35)
[2016-10-08] MEDS: Triamcinolone Acetonide 0.1% Crm 15 GM Tube TOP SCH ×2 (08:36→21:40)
[2016-10-08] MEDS: Cholecalciferol (Vitamin D3) 1,000 Unit Tab PO SCH (08:36)
--- NOTE | 2016-10-08 17:08 | PCM.PN ---
- General Info Date of Service: 10/08/16 Admission Dx/Problem (Free Text): Patient states she has some left hip and knee pain. Her low back pain is improved. She says she is still very weak. She thinks she has arthritis left hip and knee. She's had x-rays in the past that showed up. No new injury to her left near hip. - Patient Data Vitals - Most Recent: Last Vital Signs Temp 97.5 F 10/08/16 07:35 Pulse 76 10/08/16 08:35 Resp 16 10/08/16 07:35 BP 116/69 10/08/16 08:35 Pulse Ox 98 10/08/16 07:35 Weight - Most Recent: 310 lb 14.4 oz Med Orders - Current: Current Medications Acetaminophen (Tylenol Extra Strength) 1,000 mg PO Q6H PRN PRN Reason: Pain Last Admin: 10/08/16 15:27 Dose: 1,000 mg Artificial Tears (Refresh Tears 0.5%) 0 ml EYEBOTH ASDIRECTED PRN PRN Reason: Dryness Last Admin: 10/05/16 20:08 Dose: 1 drop Aspirin (Halfprin) 81 mg PO DAILY [facility] Last Admin: 10/08/16 08:33 Dose: 81 mg Atenolol (Tenormin) 50 mg PO DAILY [facility] Last Admin: 10/08/16 08:35 Dose: 50 mg Calcium Carbonate (Calcium Carbonate/Vitamin D 1250 Mg-200 Unit) 2 tab PO DAILY [facility] Last Admin: 10/08/16 08:32 Dose: 2 tab Cholecalciferol (Vitamin D3) 1,000 units PO DAILY [facility] Last Admin: 10/08/16 08:36 Dose: 1,000 units Ciclopirox Olamine (Loprox 0.77% Crm) 0 gm TOP BID [facility] Stop: 10/10/16 23:59 Last Admin: 10/08/16 08:33 Dose: 1 applic Diclofenac Sodium (Voltaren) 75 mg PO BIDMEALS PRN PRN Reason: Breakthrough Pain Last Admin: 10/07/16 13:45 Dose: 75 mg Docusate Sodium (Colace) 100 mg PO DAILY PRN PRN Reason: Constipation Fish Oil (Fish Oil) 1 gm PO DAILY [facility] Last Admin: 10/08/16 08:33 Dose: 1 gm Levothyroxine Sodium (Synthroid) 88 mcg PO ACBREAKFAST [facility] Last Admin: 10/08/16 07:56 Dose: 88 mcg Multivitamins/Minerals/Vitamin C (Tab-A-Maddy) 1 tab PO DAILY [facility] Last Admin: 10/08/16 08:34 Dose: 1 tab Agilease Patient's (Own Med) 1 each PO BID [facility] Last Admin: 10/08/16 08:34 Dose: 1 each Sulfurzyme Patient 's Own Medication 1 Each 2 each PO BID [facility] Last Admin: 10/08/16 08:34 Dose: 2 each Trazodone HCl (Trazodone) 100 mg PO BEDTIME [facility] Last Admin: 10/07/16 21:16 Dose: 100 mg Triamcinolone Acetonide (Triamcinolone Acetonide 0.1% Crm) 0 gm TOP BID [facility] Last Admin: 10/08/16 08:36 Dose: Not Given Discontinued Medications Atenolol (Tenormin) 100 mg PO DAILY [facility] Last Admin: 10/01/16 08:34 Dose: 100 mg Atenolol (Tenormin) 50 mg PO DAILY [facility] Cyclobenzaprine HCl (Flexeril) 10 mg PO BEDTIME [facility] Last Admin: 10/03/16 20:17 Dose: 10 mg Dexamethasone (Dexamethasone) 2 mg PO BID [facility] Stop: 10/05/16 06:00 Last Admin: 10/04/16 21:13 Dose: 2 mg Methylprednisolone (Medrol) 0 mg PO QIDPCANDBED [facility] PRN Reason: Protocol Stop: 09/28/16 21:01 Last Admin: 09/28/16 20:27 Dose: 1 tab Methylprednisolone (Medrol) 0 mg PO 0800,1300,2100 SHEMAR PRN Reason: Protocol Stop: 09/29/16 21:01 Last Admin: 09/29/16 21:09 Dose: 1 tab Methylprednisolone (Medrol) 0 mg PO 0800,2100 SHEMAR PRN Reason: Protocol Stop: 09/30/16 21:01 Last Admin: 10/01/16 08:30 Dose: 1 tab Methylprednisolone (Medrol) 0 mg PO 0800 SHEMAR PRN Reason: Protocol Stop: 10/01/16 08:01 Last Admin: 10/01/16 08:31 Dose: 4 mg Methylprednisolone (Medrol) 0 mg PO QIDPCANDBED [facility] PRN Reason: Protocol Stop: 09/26/16 13:01 Last Admin: 09/26/16 12:40 Dose: 3 tab Tramadol HCl (Ultram) 50 mg PO Q6H PRN PRN Reason: Breakthrough Pain Last Admin: 09/26/16 05:03 Dose: 50 mg - Exam General: Alert, Oriented, Cooperative Extremities: Other (Left knee and left hip exam normal) - Problem List & Annotations (1) Weakness SNOMED Code(s): 51390613 Code(s): R53.1 - WEAKNESS Status: Acute Current Visit: No (2) Back pain SNOMED Code(s): 518251441 Code(s): M54.9 - DORSALGIA, UNSPECIFIED Status: Chronic Current Visit: No - Problem List Review Problem List Initiated/Reviewed/Updated: Yes - Plan Plan:: Continue current care.
[2016-10-08] MEDS: Diclofenac Sodium 75 MG Tab.EC PO PRN (21:36)
[2016-10-08] MEDS: traZODone 100 MG Tab PO SCH (21:36)
[2016-10-09] MEDS: Acetaminophen 500 MG Tab PO PRN ×2 (03:05→20:18)
[2016-10-09] MEDS: Levothyroxine 88 MCG Tab PO SCH (06:35)
[2016-10-09] MEDS: Triamcinolone Acetonide 0.1% Crm 15 GM Tube TOP SCH ×2 (08:31→20:18)
[2016-10-09] MEDS: Atenolol 50 MG Tab PO SCH (08:47)
[2016-10-09] MEDS: Calcium Carbonate/Vitamin D3 1250 MG-200 Unit Tab PO SCH (08:47)
[2016-10-09] MEDS: Fish Oil/Omega-3 Fatty Acids 1 Gm Cap PO SCH (08:47)
[2016-10-09] MEDS: Aspirin 81 MG Tab.EC PO SCH (08:47)
[2016-10-09] MEDS: Multivitamin Tab PO SCH (08:47)
[2016-10-09] MEDS: [UNRECOGNIZED DRUG - OTHER] PO SCH ×2 (08:48→20:17)
[2016-10-09] MEDS: Ciclopirox 0.77% Crm 15 GM Tube TOP SCH ×2 (08:48→20:16)
[2016-10-09] MEDS: Cholecalciferol (Vitamin D3) 1,000 Unit Tab PO SCH (08:48)
[2016-10-09] MEDS: AGILEASE PO SCH ×2 (08:48→20:17)
[2016-10-09] MEDS: traZODone 100 MG Tab PO SCH (20:17)
[2016-10-09] MEDS: Diclofenac Sodium 75 MG Tab.EC PO PRN (22:42)
[2016-10-10] MEDS: Acetaminophen 500 MG Tab PO PRN ×3 (03:40→23:10)
[2016-10-10] MEDS: Levothyroxine 88 MCG Tab PO SCH (06:51)
[2016-10-10] MEDS: Aspirin 81 MG Tab.EC PO SCH (09:35)
[2016-10-10] MEDS: Fish Oil/Omega-3 Fatty Acids 1 Gm Cap PO SCH (09:35)
[2016-10-10] MEDS: Calcium Carbonate/Vitamin D3 1250 MG-200 Unit Tab PO SCH (09:35)
[2016-10-10] MEDS: Ciclopirox 0.77% Crm 15 GM Tube TOP SCH ×2 (09:36→21:15)
[2016-10-10] MEDS: [UNRECOGNIZED DRUG - OTHER] PO SCH ×2 (09:37→21:15)
[2016-10-10] MEDS: AGILEASE PO SCH ×2 (09:37→21:15)
[2016-10-10] MEDS: Multivitamin Tab PO SCH (09:38)
[2016-10-10] MEDS: Atenolol 50 MG Tab PO SCH (09:38)
[2016-10-10] MEDS: Triamcinolone Acetonide 0.1% Crm 15 GM Tube TOP SCH ×2 (09:39→21:16)
[2016-10-10] MEDS: Cholecalciferol (Vitamin D3) 1,000 Unit Tab PO SCH (09:39)
[2016-10-10] MEDS: traZODone 100 MG Tab PO SCH (21:16)
[2016-10-11] MEDS: Diclofenac Sodium 75 MG Tab.EC PO PRN ×2 (04:47→12:28)
[2016-10-11] MEDS: Levothyroxine 88 MCG Tab PO SCH (07:48)
[2016-10-11] MEDS: [UNRECOGNIZED DRUG - OTHER] PO SCH ×2 (09:23→20:48)
[2016-10-11] MEDS: Atenolol 50 MG Tab PO SCH (09:23)
[2016-10-11] MEDS: Multivitamin Tab PO SCH (09:23)
[2016-10-11] MEDS: Calcium Carbonate/Vitamin D3 1250 MG-200 Unit Tab PO SCH (09:23)
[2016-10-11] MEDS: Fish Oil/Omega-3 Fatty Acids 1 Gm Cap PO SCH (09:23)
[2016-10-11] MEDS: Aspirin 81 MG Tab.EC PO SCH (09:23)
[2016-10-11] MEDS: Cholecalciferol (Vitamin D3) 1,000 Unit Tab PO SCH (09:24)
[2016-10-11] MEDS: AGILEASE PO SCH ×2 (09:26→20:48)
[2016-10-11] MEDS: Triamcinolone Acetonide 0.1% Crm 15 GM Tube TOP SCH ×2 (09:27→20:50)
[2016-10-11] MEDS: Acetaminophen 500 MG Tab PO PRN ×3 (10:25→21:47)
[2016-10-11] MEDS: traZODone 100 MG Tab PO SCH (20:49)
[2016-10-12] MEDS: hydrOXYzine HCl 25 MG Tab PO PRN ×2 (00:30→20:41)
[2016-10-12] MEDS: Levothyroxine 88 MCG Tab PO SCH (07:27)
[2016-10-12] MEDS: Calcium Carbonate/Vitamin D3 1250 MG-200 Unit Tab PO SCH (08:11)
[2016-10-12] MEDS: Fish Oil/Omega-3 Fatty Acids 1 Gm Cap PO SCH (08:12)
[2016-10-12] MEDS: Aspirin 81 MG Tab.EC PO SCH (08:12)
[2016-10-12] MEDS: AGILEASE PO SCH ×2 (08:12→20:34)
[2016-10-12] MEDS: Multivitamin Tab PO SCH (08:13)
[2016-10-12] MEDS: [UNRECOGNIZED DRUG - OTHER] PO SCH ×2 (08:13→20:34)
[2016-10-12] MEDS: Atenolol 50 MG Tab PO SCH (08:14)
[2016-10-12] MEDS: Triamcinolone Acetonide 0.1% Crm 15 GM Tube TOP SCH ×2 (08:14→20:41)
[2016-10-12] MEDS: Cholecalciferol (Vitamin D3) 1,000 Unit Tab PO SCH (08:15)
[2016-10-12] MEDS: Acetaminophen 500 MG Tab PO PRN ×3 (09:48→23:47)
[2016-10-12] MEDS: traZODone 100 MG Tab PO SCH (20:35)
[2016-10-12] MEDS: Diclofenac Sodium 75 MG Tab.EC PO PRN (20:48)
[2016-10-13] MEDS: Levothyroxine 88 MCG Tab PO SCH (07:50)
[2016-10-13] MEDS: Acetaminophen 500 MG Tab PO PRN ×2 (08:39→21:20)
[2016-10-13] MEDS: [UNRECOGNIZED DRUG - OTHER] PO SCH ×2 (09:55→20:18)
[2016-10-13] MEDS: Fish Oil/Omega-3 Fatty Acids 1 Gm Cap PO SCH (09:55)
[2016-10-13] MEDS: Calcium Carbonate/Vitamin D3 1250 MG-200 Unit Tab PO SCH (09:55)
[2016-10-13] MEDS: AGILEASE PO SCH ×2 (09:55→20:17)
[2016-10-13] MEDS: Atenolol 50 MG Tab PO SCH (09:55)
[2016-10-13] MEDS: Cholecalciferol (Vitamin D3) 1,000 Unit Tab PO SCH (09:55)
[2016-10-13] MEDS: Multivitamin Tab PO SCH (09:55)
[2016-10-13] MEDS: Aspirin 81 MG Tab.EC PO SCH (09:55)
[2016-10-13] MEDS: Triamcinolone Acetonide 0.1% Crm 15 GM Tube TOP SCH ×3 (09:56→22:14)
[2016-10-13] MEDS: traZODone 100 MG Tab PO SCH (20:21)
[2016-10-14] MEDS: Acetaminophen 500 MG Tab PO PRN (03:51)
[2016-10-14] MEDS: Levothyroxine 88 MCG Tab PO SCH (07:21)
[2016-10-14] MEDS: Calcium Carbonate/Vitamin D3 1250 MG-200 Unit Tab PO SCH (08:25)
[2016-10-14] MEDS: AGILEASE PO SCH ×2 (08:26→21:50)
[2016-10-14] MEDS: Fish Oil/Omega-3 Fatty Acids 1 Gm Cap PO SCH (08:26)
[2016-10-14] MEDS: Aspirin 81 MG Tab.EC PO SCH (08:26)
[2016-10-14] MEDS: Multivitamin Tab PO SCH (08:26)
[2016-10-14] MEDS: [UNRECOGNIZED DRUG - OTHER] PO SCH ×2 (08:26→21:51)
[2016-10-14] MEDS: Atenolol 50 MG Tab PO SCH (08:27)
[2016-10-14] MEDS: Triamcinolone Acetonide 0.1% Crm 15 GM Tube TOP SCH ×2 (08:28→21:52)
[2016-10-14] MEDS: Cholecalciferol (Vitamin D3) 1,000 Unit Tab PO SCH (08:28)
[2016-10-14] MEDS: traZODone 100 MG Tab PO SCH (21:51)
[2016-10-15] MEDS: hydrOXYzine HCl 25 MG Tab PO PRN ×2 (01:57→21:45)
[2016-10-15] MEDS ORDERED: Levothyroxine 88 MCG Tab PO ONE (06:30)
[2016-10-15] MEDS: Calcium Carbonate/Vitamin D3 1250 MG-200 Unit Tab PO SCH (08:27)
[2016-10-15] MEDS: [UNRECOGNIZED DRUG - OTHER] PO SCH ×2 (08:27→20:34)
[2016-10-15] MEDS: AGILEASE PO SCH ×2 (08:27→20:34)
[2016-10-15] MEDS: Fish Oil/Omega-3 Fatty Acids 1 Gm Cap PO SCH (08:27)
[2016-10-15] MEDS: Aspirin 81 MG Tab.EC PO SCH (08:27)
[2016-10-15] MEDS: Triamcinolone Acetonide 0.1% Crm 15 GM Tube TOP SCH ×2 (08:28→20:34)
[2016-10-15] MEDS: Multivitamin Tab PO SCH (08:28)
[2016-10-15] MEDS: Atenolol 50 MG Tab PO SCH (08:28)
[2016-10-15] MEDS: Acetaminophen 500 MG Tab PO PRN (08:29)
[2016-10-15] MEDS: Cholecalciferol (Vitamin D3) 1,000 Unit Tab PO SCH (08:29)
[2016-10-15] MEDS: traZODone 100 MG Tab PO SCH (20:34)
[2016-10-16] MEDS: Levothyroxine 88 MCG Tab PO SCH (05:51)
[2016-10-16] MEDS: Calcium Carbonate/Vitamin D3 1250 MG-200 Unit Tab PO SCH (08:55)
[2016-10-16] MEDS: Fish Oil/Omega-3 Fatty Acids 1 Gm Cap PO SCH (08:56)
[2016-10-16] MEDS: Aspirin 81 MG Tab.EC PO SCH (08:56)
[2016-10-16] MEDS: Atenolol 50 MG Tab PO SCH (08:57)
[2016-10-16] MEDS: Multivitamin Tab PO SCH (08:57)
[2016-10-16] MEDS: AGILEASE PO SCH ×2 (08:57→21:22)
[2016-10-16] MEDS: [UNRECOGNIZED DRUG - OTHER] PO SCH ×2 (08:57→21:23)
[2016-10-16] MEDS: Cholecalciferol (Vitamin D3) 1,000 Unit Tab PO SCH (09:01)
[2016-10-16] MEDS: Triamcinolone Acetonide 0.1% Crm 15 GM Tube TOP SCH ×2 (09:25→21:24)
--- NOTE | 2016-10-16 11:12 | PN ---
DATE SEEN: 10/16/2016 SUBJECTIVE: Stephanie Thomas is a 71-year-old female who has been in swing bed for some duration. Complicated back pain and general disability. Plan is for discharge later this week. Medications reviewed and appropriate. Laboratory studies, none outstanding since her admission. OBJECTIVE: VITAL SIGNS: 36.6, 117/67, 83 is the mean blood pressure, respirations 18, O2 95%. GENERAL: Cooperative and conversant, sitting in a chair. CHEST: Clear. HEART: Regular. ABDOMEN: Benign. EXTREMITIES: Suggest ulcer of left medial ankle revealed excoriated lesion only. MUSCULOSKELETAL: Complicated back pain, with disability. PLAN: Medications, care and treatment appropriate, plan is discharge as noted. /[id number] NIKKI/TONNY
[2016-10-16] MEDS: Acetaminophen 500 MG Tab PO PRN ×2 (11:44→21:25)
[2016-10-16] MEDS: traZODone 100 MG Tab PO SCH (21:24)
[2016-10-16] MEDS: hydrOXYzine HCl 25 MG Tab PO PRN (21:30)
[2016-10-17] MEDS: Levothyroxine 88 MCG Tab PO SCH (05:45)
[2016-10-17] MEDS: Multivitamin Tab PO SCH (08:20)
[2016-10-17] MEDS: Calcium Carbonate/Vitamin D3 1250 MG-200 Unit Tab PO SCH (08:20)
[2016-10-17] MEDS: Fish Oil/Omega-3 Fatty Acids 1 Gm Cap PO SCH (08:20)
[2016-10-17] MEDS: Aspirin 81 MG Tab.EC PO SCH (08:20)
[2016-10-17] MEDS: Cholecalciferol (Vitamin D3) 1,000 Unit Tab PO SCH (08:20)
[2016-10-17] MEDS: Atenolol 50 MG Tab PO SCH (08:21)
[2016-10-17] MEDS: [UNRECOGNIZED DRUG - OTHER] PO SCH ×2 (08:21→20:53)
[2016-10-17] MEDS: Triamcinolone Acetonide 0.1% Crm 15 GM Tube TOP SCH ×2 (08:21→20:53)
[2016-10-17] MEDS: AGILEASE PO SCH ×2 (08:21→20:53)
--- NOTE | 2016-10-17 09:47 | PN ---
DATE SEEN: 10/17/2016 SUBJECTIVE: Stephanie Thomas is a 71-year-old female. She has had a long-term acute care and now swing bed stay. Getting better. Home health is actively involved. Planning discharge tomorrow. Diagnostic studies, none recently performed. Last lab work was done on October 02 and complementary. OBJECTIVE: VITAL SIGNS: 118/72, 87 is the mean blood pressure, 75 is the pulse, most recent O2 saturation 95% on room air. GENERAL: In good spirits. Sitting in a wheelchair. NECK: Benign. Thyroid small. CHEST: Clear. HEART: Regular. Antalgic gait. ASSESSMENT: Complicated back disorder, chronic pain syndrome. PLAN: Medications, care and treatment appropriate, discharge planning in place. /[id number] NIKKI/TONNY
[2016-10-17] MEDS: Acetaminophen 500 MG Tab PO PRN ×2 (16:30→22:39)
[2016-10-17] MEDS: traZODone 100 MG Tab PO SCH (20:53)
[2016-10-17] MEDS: hydrOXYzine HCl 25 MG Tab PO PRN (20:53)
[2016-10-18] MEDS: Levothyroxine 88 MCG Tab PO SCH (06:46)
[2016-10-18 07:33] VITALS: BP 126/73
[2016-10-18] MEDS: Cholecalciferol (Vitamin D3) 1,000 Unit Tab PO SCH (09:08)
[2016-10-18] MEDS: Calcium Carbonate/Vitamin D3 1250 MG-200 Unit Tab PO SCH (09:09)
[2016-10-18] MEDS: AGILEASE PO SCH (09:09)
[2016-10-18] MEDS: Fish Oil/Omega-3 Fatty Acids 1 Gm Cap PO SCH (09:09)
[2016-10-18] MEDS: [UNRECOGNIZED DRUG - OTHER] PO SCH (09:09)
[2016-10-18] MEDS: Aspirin 81 MG Tab.EC PO SCH (09:09)
[2016-10-18] MEDS: Atenolol 50 MG Tab PO SCH (09:10)
[2016-10-18] MEDS: Multivitamin Tab PO SCH (09:10)
[2016-10-18] MEDS: Triamcinolone Acetonide 0.1% Crm 15 GM Tube TOP SCH (09:10)
[2016-10-18] MEDS: Acetaminophen 500 MG Tab PO PRN (11:38)
--- NOTE | 2016-10-19 07:45 | DISCH ---
DISCHARGE DATE: 10/18/2016 HOSPITAL COURSE: Stephanie Thomas is a 71-year-old female, who was a direct admission from acute care to swing bed. She presented with complicated weakness, complicated back pain, and non-surgical disk disease. She had a lengthy swing bed stay, PT/OT was actively involved, progress was appropriate, medications were reviewed, and all went well. DISPOSITION: At the time of discharge, she will be discharged home to Home Health intervention and care. Close observation. FOLLOWUP: Follow up in two weeks' time. We spoke to insomnia and bladder discomfort, taken under advisement. SURGICAL PROCEDURES: None. CONSULTATIONS: None. /[id number] NIKKI/TONNY
== END 2016-10-18 14:30 | disposition home or self-care (01) | DRG 948 ==
LOC: FB.MS 16:00
PROVIDERS: ADMIT Family Medicine; ATTEND Family Medicine
DX: R53.1 Weakness (principal); M51.16 Intervertebral disc disorders with radiculopathy, lumbar region; G89.29 Other chronic pain; E66.9 Obesity, unspecified; L30.9 Dermatitis, unspecified; G47.00 Insomnia, unspecified; R60.0 Localized edema; M25.552 Pain in left hip; M25.562 Pain in left knee; Z79.52 Long term (current) use of systemic steroids; E03.9 Hypothyroidism, unspecified; R32 Unspecified urinary incontinence; E11.9 Type 2 diabetes mellitus without complications; Z86.718 Personal history of other venous thrombosis and embolism; I10 Essential (primary) hypertension; K21.9 Gastro-esophageal reflux disease without esophagitis; M19.90 Unspecified osteoarthritis, unspecified site; F32.9 Major depressive disorder, single episode, unspecified
CPT/HCPCS: 36415; 80053; 80069; 82550; 84443; 85025; 85651; 93306; 97110-GO; 97110-GP; 97116-GP; 97530-GO; 97530-GO-KX; 97530-GP; 97535-GO; 97542-GO; A9270-GY; J8540

== ENCOUNTER 2019-09-17 22:38 | Inpatient (IN) | payer MEDICARE, OTHER ==
[2019-09-17] MEDS ORDERED: Acetaminophen/oxyCODONE 325-5 MG Tab PO STA (22:43)
--- NOTE | 2019-09-17 23:06 | EDM.PDOC ---
ED HPI GENERAL MEDICAL PROBLEM - General Stated Complaint: SHOULDER Time Seen by Provider: 09/17/19 22:55 Source of Information: Reports: Patient History Limitations: Reports: No Limitations - History of Present Illness INITIAL COMMENTS - FREE TEXT/NARRATIVE: Patient presented to the ED because a rt shoulder injury. He tripped and fell in her bathroom 2 days ago and landed on her rt shoulder. The pain is sharp, 6/10, worse with movements. - Related Data Allergies Allergy/AdvReac Type Severity Reaction Status Date / Time amoxicillin Allergy Rash Verified 09/25/16 16:31 latex Allergy Cough Verified 09/25/16 16:31 Home Meds: Home Meds Aspirin 81 mg PO DAILY 07/28/16 [History] Calcium Carb/Vit D3/Minerals [Calcium 600+D Plus Minerals] 1,200 mg PO DAILY 07/28/16 [History] Cholecalciferol (Vitamin D3) [Vitamin D3] 1,000 unit PO DAILY 07/28/16 [History] Dextran 70/Hypromellose/PF [Artificial Tears Drops] 1 each EYEBOTH BID PRN 07/28/16 [History] Levothyroxine [Synthroid] 88 mcg PO ACBREAKFAST 07/28/16 [History] Multivitamin [Multi-Vitamin Daily] 1 tab PO DAILY 07/28/16 [History] [place]-3S/DHA/Epa/Fish Oil [[place]-3 Fish Oil 1,200 mg Sfgl] 1,200 mg PO DAILY 07/28/16 [History] traZODone HCl [Trazodone HCl] 100 mg PO BEDTIME 07/28/16 [History] Sulfurzyme 2 tab PO BID 07/29/16 [History] Acetaminophen [Tylenol Extra Strength] 1,000 mg PO Q6H PRN #0 tablet 08/02/16 [Rx] Docusate Sodium [Colace] 100 mg PO DAILY PRN 08/02/16 [History] Carboxymethylcellulose Sodium [Refresh Tears 0.5%] 1 drop EYEBOTH ASDIRECTED PRN 09/21/16 [History] Cyclobenzaprine [Flexeril] 10 mg PO BEDTIME #30 tab 09/25/16 [Rx] Diclofenac Sodium [IJD: Diclofenac Sodium] 75 mg PO .TWICE DAILY W MEALS PRN #20 tab.ec 09/25/16 [Rx] Triamcinolone Acetonide [IJD: Triamcinolone Acetonide 0.1% Crm] 0 gm TOP BID #1 tube 09/25/16 [Rx] traMADol [Ultram] 50 mg PO Q6H PRN #30 tablet 09/25/16 [Rx] Patient's Own Medication [Ptom] 1 each PO BID each 10/18/16 [Rx] Cyclobenzaprine [Flexeril] 10 mg PO TID #15 tab 09/17/19 [Rx] traMADol [Ultram] 100 mg PO Q8H PRN #15 tab 09/17/19 [Rx] Past Medical History - Past Health History Medical/Surgical History: Denies Medical/Surgical History HEENT History: Reports: Cataract Other HEENT History: Pt wears glasses. 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 - Infectious Disease History Infectious Disease History: Reports: Chicken Pox, Measles, Mumps, Rubella - Past Surgical History HEENT Surgical History: Reports: None Cardiovascular Surgical History: Reports: None GI Surgical History: Reports: None Female Surgical History: Reports: Hysterectomy Endocrine Surgical History: Reports: None Musculoskeletal Surgical History: Reports: Knee Replacement Dermatological Surgical History: Reports: None Social & Family History - Family History Family Medical History: Noncontributory - Caffeine Use Caffeine Use: Reports: None ED ROS GENERAL - Review of Systems Review Of Systems: See Below Constitutional: Reports: No Symptoms HEENT: Reports: No Symptoms Respiratory: Reports: No Symptoms Cardiovascular: Reports: No Symptoms Endocrine: Reports: No Symptoms GI/Abdominal: Reports: No Symptoms : Reports: No Symptoms Musculoskeletal: Reports: No Symptoms Skin: Reports: No Symptoms Neurological: Reports: No Symptoms Psychiatric: Reports: No Symptoms ED EXAM, UPPER BACK/NECK PAIN - Physical Exam Exam: See Below General Appearance: Alert, No Apparent Distress Ears Exam: Normal External Exam, Normal Canal, Hearing Grossly Normal Nose Exam: Normal Inspection, Normal Mucousa, No Blood Throat/Mouth Exam: Normal Inspection, Normal Lips, Normal Teeth, Normal Gums, Normal Oropharynx, Normal Voice, No Airway Compromise Head Exam: Atraumatic, Normocephalic Neck Exam: Non-Tender, Full Range of Motion, Normal Alignment Cardiovascular/Respiratory: Regular Rate, Rhythm, Normal Peripheral Pulses, No JVD GI/Abdominal: Normal Bowel Sounds, Soft, Non-Tender, No Organomegaly Back Exam: Normal Inspection, Full Range of Motion Extremities: Normal Inspection, Joint Swelling, Arm Pain Course - Vital Signs Text/Narrative:: xray rt shoulder-ant shoulder dislocation Percocet 5/325-2 po x1 see GRAIN CLEANER notes for details of sedation Manual reduction of right anterior dislocation. - Orders/Labs/Meds Orders: Active Orders 24 hr Category Date Time Status Shoulder 1V Rt [CR] Stat Exams 09/17/19 23:55 Taken Shoulder Comp Rt [CR] Stat Exams 09/17/19 22:44 Taken Ketorolac [Toradol] Med 09/18/19 00:19 Stat 15 mg IVPUSH NOW STA Sodium Chloride 0.9% [Saline Flush] Med 09/17/19 23:24 Active 10 ml FLUSH ASDIRECTED PRN Saline Lock Insert [OM.PC] Routine Oth 09/17/19 23:24 Ordered Medication Orders Sodium Chloride (Saline Flush) 10 ml FLUSH ASDIRECTED PRN PRN Reason: Keep Vein Open Meds: Medications Generic Name Dose Route Start Last Admin Trade Name Freq PRN Reason Stop Dose Admin Sodium Chloride 10 ml 09/17/19 23:24 Saline Flush FLUSH ASDIRECTED PRN Keep Vein Open Discontinued Medications Generic Name Dose Route Start Last Admin Trade Name Freq PRN Reason Stop Dose Admin Cyclobenzaprine HCl 10 mg 09/17/19 23:11 09/17/19 23:22 Flexeril PO 09/17/19 23:12 10 mg ONETIME ONE Administration Ketorolac Tromethamine 15 mg 09/18/19 00:19 Toradol IVPUSH 09/18/19 00:20 NOW STA Oxycodone/Acetaminophen 2 tab 09/17/19 22:43 09/17/19 22:50 Percocet 325-5 Mg PO 09/17/19 22:44 2 tab NOW STA Administration Departure - Departure Time of Disposition: 12:00 Disposition: Home, Self-Care 01 Condition: Good Clinical Impression: Shoulder strain, Anterior dislocation of right shoulder - Discharge Information Prescriptions: Cyclobenzaprine [Flexeril] 10 mg PO TID #15 tab traMADol [Ultram] 100 mg PO Q8H PRN #15 tab PRN Reason: Pain Instructions: Muscle Strain, [id number] Referrals: Laz Lerma MD [Primary Care Provider] - Additional Instructions: Please read discharge instructions on shoulder strain and dislocation Apply ice or heat whichever makes the pain feel better IBuprofen 800 mg with tylenol 1000 mg every 8 hours as needed for pain Flexeril 10 mg every 8 hours as needed for spasm/pain Follow up if symptoms persist after 1 week - My Orders Last 24 Hours: My Active Orders 09/17/19 22:44 Shoulder Comp Rt [CR] Stat 09/17/19 23:24 Sodium Chloride 0.9% [Saline Flush] 10 ml FLUSH ASDIRECTED PRN Saline Lock Insert [OM.PC] Routine 09/17/19 23:55 Shoulder 1V Rt [CR] Stat 09/18/19 00:19 Ketorolac [Toradol] 15 mg IVPUSH NOW STA - Assessment/Plan Last 24 Hours: My Active Orders 09/17/19 22:44 Shoulder Comp Rt [CR] Stat 09/17/19 23:24 Sodium Chloride 0.9% [Saline Flush] 10 ml FLUSH ASDIRECTED PRN Saline Lock Insert [OM.PC] Routine 09/17/19 23:55 Shoulder 1V Rt [CR] Stat 09/18/19 00:19 Ketorolac [Toradol] 15 mg IVPUSH NOW STA
[2019-09-17] MEDS ORDERED: Cyclobenzaprine 10 MG Tab PO ONE (23:11)
[2019-09-17] MEDS ORDERED: Sodium Chloride 0.9% 10 ML Syringe FLUSH PRN (23:24)
[2019-09-17] MEDS ORDERED: Propofol 200 MG/20 ML SDV IV ONE (23:50)
[2019-09-18] MEDS ORDERED: Ketorolac 15 MG/ML SDV IVPUSH STA (00:19)
[2019-09-18] MEDS ORDERED: Carbidopa/Levodopa 25-250 MG Tab PO SCH (07:15)
[2019-09-18] MEDS ORDERED: Acetaminophen/HYDROcodone 325-5 MG Tab PO PRN (08:06)
[2019-09-18] MEDS ORDERED: Ibuprofen 800 MG Tab PO PRN (08:06)
[2019-09-18] MEDS ORDERED: Enoxaparin 40 MG/0.4 ML Syringe SUBCUT SCH (08:15)
[2019-09-18 08:45] VITALS: PULSE 76
--- NOTE | 2019-09-18 08:57 | PCM.HP.2 ---
H&P History of Present Illness - General Date of Service: 09/18/19 Admit Problem/Dx: Admission Diagnosis/Problem Admission Diagnosis/Problem Weakness Source of Information: Patient, RN History Limitations: Reports: No Limitations - History of Present Illness Initial Comments - Free Text/Narative: Stephanie is a 73-year-old female well-known to me. She tripped and fell on the [facility] shoulder about 2 days ago .She has had difficulty moving it since.IN the ER last night, she was found to have shoulder dislocation ,right,which was reduced by Dr. Rodríguez.Stephanie has had difficulty with ambulation and multiple falls at home. She has morbid obesity, dysthymia, and uncontrolled Parkinson's disease. Furthermore she's had chronic pain and polyarthralgia that is difficult control. She denies any fever chills or respiratory symptoms. Her urine was found to be foul-smelling.Stephanie lives with her daughter,Jessica,and her family Right Shoulder Pain Score (Numeric/FACES): 10 - Related Data Allergies/Adverse Reactions: Allergies Allergy/AdvReac Type Severity Reaction Status Date / Time amoxicillin Allergy Rash Verified 09/25/16 16:31 latex Allergy Cough Verified 09/25/16 16:31 Home Medications: Home Meds Aspirin 81 mg PO DAILY 07/28/16 [History] Calcium Carb/Vit D3/Minerals [Calcium 600+D Plus Minerals] 1,200 mg PO DAILY 07/28/16 [History] Cholecalciferol (Vitamin D3) [Vitamin D3] 1,000 unit PO DAILY 07/28/16 [History] Dextran 70/Hypromellose/PF [Artificial Tears Drops] 1 each EYEBOTH BID PRN 07/28/16 [History] Levothyroxine [Synthroid] 88 mcg PO ACBREAKFAST 07/28/16 [History] Multivitamin [Multi-Vitamin Daily] 1 tab PO DAILY 07/28/16 [History] [place]-3S/DHA/Epa/Fish Oil [[place]-3 Fish Oil 1,200 mg Sfgl] 1,200 mg PO DAILY 07/28/16 [History] traZODone HCl [Trazodone HCl] 100 mg PO BEDTIME 07/28/16 [History] Sulfurzyme 2 tab PO BID 07/29/16 [History] Acetaminophen [Tylenol Extra Strength] 1,000 mg PO Q6H PRN #0 tablet 08/02/16 [Rx] Docusate Sodium [Colace] 100 mg PO DAILY PRN 08/02/16 [History] Carboxymethylcellulose Sodium [Refresh Tears 0.5%] 1 drop EYEBOTH ASDIRECTED PRN 09/21/16 [History] Cyclobenzaprine [Flexeril] 10 mg PO BEDTIME #30 tab 09/25/16 [Rx] Diclofenac Sodium [IJD: Diclofenac Sodium] 75 mg PO .TWICE DAILY W MEALS PRN #20 tab.ec 09/25/16 [Rx] Triamcinolone Acetonide [IJD: Triamcinolone Acetonide 0.1% Crm] 0 gm TOP BID #1 tube 09/25/16 [Rx] traMADol [Ultram] 50 mg PO Q6H PRN #30 tablet 09/25/16 [Rx] Patient's Own Medication [Ptom] 1 each PO BID each 10/18/16 [Rx] Cyclobenzaprine [Flexeril] 10 mg PO TID #15 tab 09/17/19 [Rx] traMADol [Ultram] 100 mg PO Q8H PRN #15 tab 09/17/19 [Rx] Carbidopa/Levodopa [Carbidopa-Levodopa 25-100 Tab] 3 cap PO Q3H 09/18/19 [History] Past Medical History - Past Health History Medical/Surgical History: Denies Medical/Surgical History HEENT History: Reports: Cataract Other HEENT History: Pt wears glasses. 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 - Infectious Disease History Infectious Disease History: Reports: Chicken Pox, Measles, Mumps, Rubella - Past Surgical History HEENT Surgical History: Reports: None Cardiovascular Surgical History: Reports: None GI Surgical History: Reports: None Female Surgical History: Reports: Hysterectomy Endocrine Surgical History: Reports: None Musculoskeletal Surgical History: Reports: Knee Replacement Dermatological Surgical History: Reports: None Social & Family History - Family History Family Medical History: Noncontributory - Tobacco Use Smoking Status *Q: Never Smoker - Caffeine Use Caffeine Use: Reports: None - Recreational Drug Use Recreational Drug Use: No H&P Review of Systems - Review of Systems: Review Of Systems: Comprehensive ROS is negative, except as noted in HPI. Exam - Exam Exam: See Below - Vital Signs Vital Signs: Last Vital Signs Temp 97.5 F 09/18/19 08:40 Pulse 76 09/18/19 08:40 Resp 17 09/18/19 08:40 BP 102/57 L 09/18/19 08:40 Pulse Ox 92 L 09/18/19 08:40 - Exam Quality Assessment: No: Supplemental Oxygen General: Alert, Lethargic HEENT: PERRLA Neck: Supple Lungs: Clear to Auscultation, Normal Respiratory Effort Cardiovascular: Regular Rate (Female) Exam: Deferred Back Exam: Normal Inspection Extremities: Limited Range of Motion Skin: Warm Neurological: Cranial Nerves Intact, Normal Speech, Abnormal Gait. No: Normal Gait Neuro Extensive - Mental Status: Alert, Oriented x3, Memory Intact Neuro Extensive - Motor, Sensory, Reflexes: CN II-XII Intact, Abnormal Gait Psychiatric: Depressed - Patient Data Lab Results Last 24 hrs: Laboratory Results - last 24 hr 09/18/19 09/18/19 09/18/19 Range/Units 07:15 07:15 07:48 WBC 7.4 (4.5-12.0) X10-3/uL RBC 3.75 (3.23-5.20) x10(6)uL Hgb 11.8 (11.5-15.5) g/dL Hct 36.0 (30.0-51.3) % MCV 95.9 (80-96) fL MCH 31.6 (27.7-33.6) pg MCHC 32.9 (32.2-35.4) g/dL RDW 13.3 (11.5-15.5) % Plt Count 222 (125-369) X10(3)uL MPV 8.1 (7.4-10.4) fL Neut % (Auto) 62.0 (46-82) % Lymph % (Auto) 19.2 (13-37) % [place] % (Auto) 13.7 H (4-12) % Eos % (Auto) 4 (1.0-5.0) % Baso % (Auto) 1 (0-2) % Neut # (Auto) 4.6 (1.6-8.3) # Lymph # (Auto) 1.4 (0.6-5.0) # [place] # (Auto) 1.0 (0.0-1.3) # Eos # (Auto) 0.3 (0.0-0.8) # Baso # (Auto) 0.1 (0.0-0.2) # Sodium 143 (135-145) mmol/L Potassium 3.5 (3.5-5.3) mmol/L Chloride 107 (100-110) mmol/L Carbon Dioxide 29 (21-32) mmol/L BUN 14 (7-18) mg/dL Creatinine 0.9 (0.55-1.02) mg/dL Est Cr Clr Drug Dosing TNP Estimated GFR (MDRD) > 60 (>60) BUN/Creatinine Ratio 15.6 (9-20) Glucose 95 (80-116) mg/dL Calcium 9.1 (8.6-10.2) mg/dL Total Bilirubin 0.5 (0.1-1.3) mg/dL AST 19 (5-25) IU/L ALT 9 L (12-36) U/L Alkaline Phosphatase 65 (56-112) IU/L Total Protein 6.5 (6.0-8.0) g/dL Albumin 3.3 (3.2-4.6) g/dL Globulin 3.2 g/dL Albumin/Globulin Ratio 1.0 Urine Color Yellow (YELLOW) Urine Appearance Slightly cloudy (CLEAR) Urine pH 7.0 H (5.0-6.5) Ur Specific Hugo 1.010 (1.010-1.025) Urine Protein Negative (NEGATIVE) mg/dL Urine Glucose (UA) Normal (NORMAL) mg/dL Urine Ketones Negative (NEGATIVE) mg/dL Urine Occult Blood Negative (NEGATIVE) Urine Nitrite Negative (NEGATIVE) Urine Bilirubin Negative (NEGATIVE) Urine Urobilinogen Normal (NEGATIVE) mg/dL Ur Leukocyte Esterase Small H (NEGATIVE) Urine WBC 20-30 H (0-5) Ur Squamous Epith Cells Few H (NS,R,O) Urine Bacteria Many H (NS) Result Diagrams: 09/18/19 07:15 09/18/19 07:15 Sepsis Event Note - Evaluation Sepsis Screening Result: No Definite Risk - Focused Exam Vital Signs: Vital Signs Temp Pulse Resp BP BP Pulse Ox Pulse Ox 09/18/19 08:40 97.5 F 76 17 102/57 L 92 L 09/18/19 08:30 92 L 09/18/19 00:22 24 H 100 09/17/19 23:31 71 16 135/80 96 09/17/19 22:46 71 18 144/69 H 96 Date Exam was Performed: 09/18/19 Time Exam was Performed: 08:50 - Problem List (1) Shoulder dislocation SNOMED Code(s): 668809274, 173305889 ICD Code: S43.006A - UNSP DISLOCATION OF UNSPECIFIED SHOULDER JOINT, INIT ENCNTR Status: Acute Current Visit: Yes Qualifiers: Encounter type: initial encounter Laterality: right Qualified Code(s): S43.004A - Unspecified dislocation of right shoulder joint, initial encounter (2) Parkinson disease SNOMED Code(s): 36742624 ICD Code: G20 - PARKINSON'S DISEASE Status: Chronic Current Visit: Yes (3) GERD (gastroesophageal reflux disease) SNOMED Code(s): 508573791 ICD Code: K21.9 - GASTRO-ESOPHAGEAL REFLUX DISEASE WITHOUT ESOPHAGITIS Status: Chronic Current Visit: Yes Qualifiers: Esophagitis presence: without esophagitis Qualified Code(s): K21.9 - Gastro-esophageal reflux disease without esophagitis (4) Multiple falls SNOMED Code(s): 583153599 ICD Code: R29.6 - REPEATED FALLS Status: Acute Current Visit: Yes (5) Weakness SNOMED Code(s): 63851619 ICD Code: R53.1 - WEAKNESS Status: Acute Current Visit: No (6) Depression SNOMED Code(s): 18614578 ICD Code: F32.9 - MAJOR DEPRESSIVE DISORDER, SINGLE EPISODE, UNSPECIFIED Status: Chronic Current Visit: No Qualifiers: Depression Type: major depressive disorder Major depression recurrence: recurrent Active/Remission status: currently active (7) Hypothyroid SNOMED Code(s): 09135907 ICD Code: E03.9 - HYPOTHYROIDISM, UNSPECIFIED Status: Chronic Current Visit: No Qualifiers: Hypothyroidism type: acquired Qualified Code(s): E03.9 - Hypothyroidism, unspecified (8) Obesity SNOMED Code(s): 798624975, 851633522 ICD Code: E66.9 - OBESITY, UNSPECIFIED Status: Chronic Current Visit: No Qualifiers: Obesity type: due to excess calories Obesity classification: unspecified obesity classification Serious obesity comorbidity presence: without serious comorbidity Qualified Code(s): E66.09 - Other obesity due to excess calories (9) Asymptomatic bacteriuria SNOMED Code(s): 284437567 ICD Code: R82.71 - BACTERIURIA Status: Acute Current Visit: Yes Problem List Initiated/Reviewed/Updated: Yes Orders Last 24hrs: Active Orders 24 hr Category Date Time Status Admission Status [Patient Status] [ADT] Routine ADT 09/18/19 08:00 Active Ambulate [RC] ASDIRECTED Care 09/18/19 08:06 Active Oxygen Therapy [RC] PRN Care 09/18/19 08:06 Active Up With Assistance [RC] ASDIRECTED Care 09/18/19 08:06 Active VTE/DVT Education [RC] Per Unit Routine Care 09/18/19 08:06 Active Vital Signs [RC] Q8H Care 09/18/19 08:06 Active OT Evaluation and Treatment [CONS] Routine Cons 09/18/19 08:06 Active PT Evaluation and Treatment [CONS] Routine Cons 09/18/19 08:06 Active Regular Diet [DIET] Diet 09/18/19 Breakfast Active Shoulder 1V Rt [CR] Stat Exams 09/17/19 23:55 Taken Shoulder Comp Rt [CR] Stat Exams 09/17/19 22:44 Taken Acetaminophen/HYDROcodone [[place] 325-5 MG] Med 09/18/19 08:06 Active 1 tab PO Q4H PRN Carbidopa/Levodopa [Sinemet 25-250 mg] Med 09/18/19 07:15 Active 3 tab PO Q3H Enoxaparin [Lovenox] Med 09/18/19 08:15 Active 40 mg SUBCUT Q24H Ibuprofen [Motrin] Med 09/18/19 08:06 Active 800 mg PO Q6H PRN Levofloxacin/Dextrose 5%-Water [Levaquin in D5W 500 MG/ Med 09/18/19 09:00 Ordered 100 ML] 500 mg Premix Bag 1 bag IV Q24H Sodium Chloride 0.9% [Saline Flush] Med 09/17/19 23:24 Active 10 ml FLUSH ASDIRECTED PRN Saline Lock Insert [OM.PC] Routine Oth 09/17/19 23:24 Ordered Resuscitation Status Routine Resus Stat 09/18/19 08:06 Ordered Medication Orders Hydrocodone Bitart/Acetaminophen ([place] 325-5 Mg) 1 tab PO Q4H PRN PRN Reason: Pain (moderate 4-6) Carbidopa/Levodopa (Sinemet 25-250 Mg) 3 tab PO Q3H SHEMAR Last Admin: 09/18/19 07:10 Dose: 3 tab Documented by: LEV Enoxaparin Sodium (Lovenox) 40 mg SUBCUT Q24H SHEMAR Levofloxacin/Dextrose 500 mg/ (Premix) 100 mls @ 100 mls/hr IV Q24H SHEMAR Ibuprofen (Motrin) 800 mg PO Q6H PRN PRN Reason: Pain (mild 1-3) Sodium Chloride (Saline Flush) 10 ml FLUSH ASDIRECTED PRN PRN Reason: Keep Vein Open Assessment/Plan Comment:: Given associated social situation at home.She is not able to return home independently right away. We'll place a shoulder immobilizer, control pain with NSAIDs and narcotics as needed, and consult physical and occupational therapy. Will discuss with bilingual medical assistant about disposition after a 2-3 day inpatient stay
[2019-09-18] MEDS ORDERED: Carboxymethylcellulose Sodium 0.5% Ophth Soln 15 ML Bottle EYEBOTH PRN (08:58)
[2019-09-18] MEDS ORDERED: Acetaminophen 500 MG Tab PO PRN (08:58)
[2019-09-18] MEDS ORDERED: Diclofenac Sodium 75 MG Tab.EC PO PRN (08:58)
[2019-09-18] MEDS ORDERED: Docusate Sodium 100 MG Cap PO PRN (08:58)
[2019-09-18] MEDS ORDERED: Non-Formulary Medication 1 Each (Patient's Own Medication 1 EACH) PO SCH (09:00)
[2019-09-18] MEDS ORDERED: Levothyroxine 88 MCG Tab PO SCH (09:00)
[2019-09-18] MEDS ORDERED: Fish Oil/Omega-3 Fatty Acids 1 Gm Cap PO SCH (09:00)
[2019-09-18] MEDS ORDERED: Calcium Carbonate 500 MG Tablet PO SCH (09:00)
[2019-09-18] MEDS ORDERED: Multivitamin Tab PO SCH (09:00)
[2019-09-18] MEDS ORDERED: Levofloxacin/Dextrose 5%-Water 500 MG in Premix Bag 1 BAG IV SCH (09:00)
[2019-09-18] MEDS ORDERED: [UNRECOGNIZED DRUG - OTHER] PO SCH (09:00)
[2019-09-18] MEDS ORDERED: Cholecalciferol (Vitamin D3) 25 MCG Tab PO SCH (09:00)
[2019-09-18] MEDS ORDERED: Polyvinyl Alcohol 1.4% Ophth Soln 15 ML Bottle EYEBOTH PRN (09:14)
[2019-09-18] MEDS ORDERED: predniSONE 5 MG Tab PO SCH (10:45)
--- NOTE | 2019-09-18 10:52 | CR ---
INDICATION: Right shoulder injury. RIGHT SHOULDER: Frontal and Y-views of the right shoulder revealed what appears to be an anterior dislocation or subluxation of the humerus with respect to the glenoid fossa. Degenerative changes are noted at the glenohumeral joint and AC joint. The dislocation is new compared with the previous study of the chest dated 05/10/16. IMPRESSION: Anterior, slightly inferior dislocation at the glenohumeral joint. MTDD
--- NOTE | 2019-09-18 10:57 | CR ---
INDICATION: Post-reduction. RIGHT SHOULDER: Two post-reduction images were obtained 09/17/19 with two sets of images - post-reduction #1 and post-reduction #2 which were obtained at 2336 hours and 2346 hours and compared with the same date examination of 2255 hours. The dislocation has not been reduced on the two post-reduction images. No change in the position of the humerus with respect to the glenoid is seen. IMPRESSION: Post-reduction images do not show reduction of the previously diagnosed right glenohumeral dislocation. Report was called to Dr. Diaz at 1037 hours. RUDI
[2019-09-18] MEDS ORDERED: Nitrofurantoin Monohydrate/Macrocrystalline 100 MG Cap PO SCH (11:00)
[2019-09-18] MEDS ORDERED: Hydroxychloroquine 200 MG Tab PO SCH (12:00)
[2019-09-18] MEDS: Carbidopa/Levodopa 25-100 MG Tab PO SCH ×2 (14:42→17:49)
[2019-09-18] MEDS ORDERED: Naltrexone 50 MG Tab PO SCH (16:30)
[2019-09-18] MEDS ORDERED: fentaNYL 100 MCG/2 ML SDV IVPUSH ONE (17:34)
--- NOTE | 2019-09-18 18:05 | PCM.SN.2 ---
- Free Text/Narrative Note: ANESTHESIA OFF-SITE SERVICE Date: 09/18/2019 Time: 1650 to 1732 Dx: Right Dislocated shoulder without a Fracture Rx: Closed Reduction of Right Shoulder Requiring Anesthesia Procedure: Closed Reduction of the Right Shoulder Requiring Anesthesia I was called for deep sedation in the ED by Dr. Martínez after a previous multiple attempts to reduce the shoulder occurring around 2345 09/17/2019 by another ED physician. This patient ate around 1100 today, so the NPO guidelines required doing this procedure at 1700. All anesthesia preoperative workup and anesthesia consents are still within 24 hours. She is an ASA 3 with a class 3 airway and a severe overbite. Heart rate is RR&R and her lungs are CTA. She was brought over to Trauma Room 2 for this procedure. Standard anesthesia monitoring was used including O2 per a simple face mask at 10 L/M rate. Her floor IV was infiltrated and a new one was started X 3 attempts. See nursing notes for vital documentation. Her B/P ran from 142/82 to 208/67, SpO2 was 95 to 100% and the heart rate was 66 to 81 beats per minute. She had spontaneous respirations throughout the procedure. Monitored Anesthesia Care was provided by me using a total of 300 mg's of Propofol and 20 mg's of 1% Lidocaine Plain was given IV in divided doses. The procedure time was 1656 to 1729 with multiple attempts with some success with the last try. The patient quickly emerged and complaining of right shoulder, neck, and back pain. Dr. Martínez was made aware and ordered IV Fentanyl for her. There was no apparent anesthesia complications and was awake/orientated [no change from baseline]. Laz Flynn CRNA Mani
--- NOTE | 2019-09-18 18:16 | DISCH ---
DISCHARGE DATE: 09/18/2019 REASON FOR ADMISSION: Shoulder dislocation. DISCHARGE DIAGNOSES: 1. Shoulder dislocation. 2. Obesity. 3. Parkinson disease. 4. Ambulatory dysfunction. PROCEDURE: Shoulder reduction closed attempted. CONSULTATIONS: None. BRIEF HISTORY: A 73-year-old who fell 2 days ago, had a dislocation, which was diagnosed in the ER this morning. After several attempts of reduction, it failed. This evening, I used monitored anesthesia and attempted relocation. There was some success, but not completely achieved. As such, we made a decision to transfer to [place], and the patient will be going by ambulance. I spent more than 35 minutes in the discharge of the patient. /[id number] ERIC/TONNY
[2019-09-18] MEDS ORDERED: Lidocaine 1% PF 2 ML SDV IV ONE (18:39)
[2019-09-18] MEDS ORDERED: Propofol 200 MG/20 ML SDV IV ONE (18:39)
[2019-09-18 18:50] VITALS: BP 157/79
[2019-09-18] MEDS ORDERED: Gabapentin 300 MG Cap PO SCH (21:00)
[2019-09-18] MEDS ORDERED: traZODone 100 MG Tab PO SCH (21:00)
[2019-09-18] MEDS ORDERED: Ferrous Sulfate 325 MG Tab PO SCH (21:00)
[2019-09-18] MEDS ORDERED: Tolterodine 4 MG Cap.ER PO SCH (21:00)
[2019-09-18] MEDS ORDERED: Aspirin 81 MG Tab.Chew PO SCH (21:00)
[2019-09-18] MEDS ORDERED: Cyclobenzaprine 10 MG Tab PO SCH (21:00)
--- NOTE | 2019-09-19 10:10 | CR ---
INDICATION: Dislocation/post-reduction view. RIGHT SHOULDER: Two AP views of the right shoulder were obtained 09/18/19 at 1645 hours and compared with 2335 hours from the same day and now show the humerus to have an appearance compatible with normal position in the glenohumeral joint area. Reduction of dislocation is strongly suggested. A lateral or Y-view may be helpful for confirmation. Widening of the AC joint space suggests a grade 1 AC joint strain additionally. Report was called to Dr. Martínez at approximately 1723 hours. [facility]
== END 2019-09-18 18:40 | DRG 563 ==
LOC: FB.ED 22:38 → FB.MS 09-18 08:00
PROVIDERS: ADMIT Family Medicine; ATTEND Family Medicine
DX: S43.004A Unspecified dislocation of right shoulder joint, initial encounter (principal); F33.9 Major depressive disorder, recurrent, unspecified; Z68.41 Body mass index [BMI] 40.0-44.9, adult; H54.7 Unspecified visual loss; I10 Essential (primary) hypertension; N32.81 Overactive bladder; G89.29 Other chronic pain; M54.9 Dorsalgia, unspecified; G20 Parkinson's disease; F32.9 Major depressive disorder, single episode, unspecified; K21.9 Gastro-esophageal reflux disease without esophagitis; E66.9 Obesity, unspecified; L30.9 Dermatitis, unspecified; R29.6 Repeated falls; E03.9 Hypothyroidism, unspecified; E66.09 Other obesity due to excess calories; R82.71 Bacteriuria; M11.9 Crystal arthropathy, unspecified; W19.XXXA Unspecified fall, initial encounter; R32 Unspecified urinary incontinence; Z96.659 Presence of unspecified artificial knee joint; Z88.1 Allergy status to other antibiotic agents; Z91.040 Latex allergy status; Z86.718 Personal history of other venous thrombosis and embolism; Z90.710 Acquired absence of both cervix and uterus; Z79.82 Long term (current) use of aspirin; Z79.890 Hormone replacement therapy; Z79.899 Other long term (current) drug therapy
CPT/HCPCS: 01730-QZ; 23650; 36415; 73020-RT; 73030-RT; 80053; 81001; 85025; 87086; 87088; 87186; 96374; 99285-25; A9270-GY; J1650; J1885; J2001; J2704; J3010; J7512